=== PATIENT | female | born 1985 | race Caucasian/White ===

== ENCOUNTER 2016-11-12 22:42 | Emergency (ER) | payer BC, OTHER ==
[2016-11-13] MEDS ORDERED: BUPIVACAINE HCL 0.25% /EPINEPHRINE INJ/PF 30 ML SDV INJ ONE (01:35)
[2016-11-13] MEDS ORDERED: AMOXICILLIN TRIHYDRATE 500 MG CAPSULE PO ONE (01:36)
--- NOTE | 2016-11-13 01:37 | ER Document Report ---
ED Oral Problem - General Chief Complaint: Mouth Problem Stated Complaint: PAIN SIDE OF MOUTH INTO EAR LEFT BOTTOM Mode of Arrival: Ambulatory Information source: Patient Notes: Patient is a 31-year-old female who presents to the ER today for dental pain 3 weeks to the left lower jaw. Patient states that she has a broken tooth on that side and that radiates pain to her left ear. She does not have dental insurance issues not seen a dentist. She denies any swelling, drainage, fever, chills she knows of. TRAVEL OUTSIDE OF THE [place] IN LAST 30 DAYS: No - Related Data Allergies/Adverse Reactions: benzocaine [From Anbesol] Allergy (Severe, Verified 11/12/16 23:23) Facial swelling phenol [From Anbesol] Allergy (Severe, Verified 11/12/16 23:23) Facial swelling povidone-iodine [From Anbesol] Allergy (Severe, Verified 11/12/16 23:23) Facial swelling zolpidem tartrate [From Ambien] Allergy (Verified 11/12/16 23:23) Past Medical History - General Information source: Patient - Social History Smoking Status: Current Every Day Smoker Chew tobacco use (# tins/day): No Frequency of alcohol use: Rare Drug Abuse: None Family History: Arthritis, CAD, CVA, DM, Hyperlipidemia, Hypertension, Malignancy Patient has suicidal ideation: No Patient has homicidal ideation: No Pulmonary Medical History: Reports: Hx Bronchitis Denies: Hx Tuberculosis Neurological Medical History: Denies: Hx Migraine, Hx Seizures Endocrine Medical History: Denies: Hx Diabetes Mellitus Type 1, Hx Diabetes Mellitus Type 2 Renal/ Medical History: Reports: Hx Pelvic Inflammatory Disease. Denies: Hx Peritoneal Dialysis GI Medical History: Reports: Hx Gastroesophageal Reflux Disease, Hx Irritable Bowel Psychiatric Medical History: Reports: Hx Bipolar Disorder, Hx Depression, Hx Post Traumatic Stress Disorder Past Surgical History: Reports: Hx Section - x's 3, Hx Cholecystectomy , Hx Tonsillectomy. Denies: Hx Hysterectomy, Hx Pacemaker - Immunizations Immunizations up to date: Yes Hx Diphtheria, Pertussis, Tetanus Vaccination: Yes Hx Pneumococcal Vaccination: 10/24/00 Review of Systems - Review of Systems Constitutional: No symptoms reported EENT: See HPI Cardiovascular: No symptoms reported Respiratory: No symptoms reported Gastrointestinal: No symptoms reported Genitourinary: No symptoms reported Female Genitourinary: No symptoms reported Musculoskeletal: No symptoms reported Skin: No symptoms reported Hematologic/Lymphatic: No symptoms reported Neurological/Psychological: No symptoms reported Physical Exam - Vital signs Vitals: Temp Pulse Resp BP Pulse Ox 98.4 F 82 14 124/70 98 11/12/16 23:29 11/12/16 23:29 11/12/16 23:29 11/12/16 23:29 11/12/16 23:29 - Notes Notes: PHYSICAL EXAMINATION: GENERAL: Well-appearing and in no acute distress. HEAD: Atraumatic, normocephalic. EYES: Pupils equal round and reactive to light, extraocular movements intact, sclera anicteric, conjunctiva are normal. ENT: ear canals without erythema or foreign body, TMs pearly koch with good bony landmarks, nares patent, oropharynx clear without exudates. Moist mucous membranes. Multiple fractured teeth, tender to tooth #18 on the left lower side , no induration, no fluctuance, no edema, no abscess appreciated NECK: Normal range of motion, supple without lymphadenopathy LUNGS: CTAB and equal. No wheezes rales or rhonchi. HEART: Regular rate and rhythm without murmurs EXTREMITIES: Normal range of motion, no pitting edema. No cyanosis. NEUROLOGICAL: Cranial nerves grossly intact. Normal sensory/motor exams. PSYCH: Normal mood, normal affect. SKIN: Warm, Dry, normal turgor, no rashes or lesions noted Course - Re-evaluation Re-evalutation: 11/13/16 02:12 Patient did receive a dental block for the pain which she tolerated well. - Vital Signs Vital signs: Temp Pulse Resp BP Pulse Ox 98.4 F 82 14 124/70 98 11/12/16 23:29 11/12/16 23:29 11/12/16 23:29 11/12/16 23:29 11/12/16 23:29 Procedures - Additional Procedures dental block local Time performed: 02:13 - pt tolerated well Discharge - Discharge Clinical Impression: Pain, dental Condition: Stable Disposition: HOME, SELF-CARE Instructions: Toothache ([facility]) Additional Instructions: Return immediately for any new or worsening symptoms. Follow up with primary care provider, call tomorrow to make followup appointment. Prescriptions: Amoxicillin 500 mg PO TID #30 capsule Ibuprofen [Motrin 800 mg Tablet] 800 mg PO Q8H PRN #30 tab PRN Reason: Forms: Return to Work
[2016-11-13] MEDS ORDERED: BUPIVACAINE HCL 0.25% /EPINEPHRINE INJ/PF 30 ML SDV ONE (02:00)
[2016-11-13] MEDS ORDERED: IBUPROFEN 800 MG TABLET PO ONE (02:15)
[2016-11-13 02:57] VITALS: BP 115/66
== END 2016-11-13 02:56 | disposition home or self-care (01) ==
LOC: ER 22:42
PROC: 3E0T3BZ Introduction of Anesthetic Agent into Peripheral Nerves and Plexi, Percutaneous Approach (ICD-10-PCS; principal; 2016-11-12)
DX: K08.9 Disorder of teeth and supporting structures, unspecified (principal); Z90.49 Acquired absence of other specified parts of digestive tract
CPT/HCPCS: 99282; 64402; J3490

== ENCOUNTER 2017-01-12 20:32 | Emergency (ER) | payer BC ==
--- NOTE | 2017-01-12 21:56 | ER Document Report ---
ED Medical Screen (RME) - General Stated Complaint: TROUBLE SWALLOWING Notes: 31 yo female c/o dental pain and sore throat. left lower tooth is broken, gum is swollen. no fever TRAVEL OUTSIDE OF THE [place] IN LAST 30 DAYS: No - Related Data Allergies/Adverse Reactions: benzocaine [From Anbesol] Allergy (Severe, Verified 11/12/16 23:23) Facial swelling phenol [From Anbesol] Allergy (Severe, Verified 11/12/16 23:23) Facial swelling povidone-iodine [From Anbesol] Allergy (Severe, Verified 11/12/16 23:23) Facial swelling zolpidem tartrate [From Ambien] Allergy (Verified 11/12/16 23:23) Past Medical History Pulmonary Medical History: Reports: Hx Bronchitis Denies: Hx Tuberculosis Neurological Medical History: Denies: Hx Migraine, Hx Seizures Endocrine Medical History: Denies: Hx Diabetes Mellitus Type 1, Hx Diabetes Mellitus Type 2 Renal/ Medical History: Reports: Hx Pelvic Inflammatory Disease. Denies: Hx Peritoneal Dialysis GI Medical History: Reports: Hx Gastroesophageal Reflux Disease, Hx Irritable Bowel Psychiatric Medical History: Reports: Hx Bipolar Disorder, Hx Depression, Hx Post Traumatic Stress Disorder Past Surgical History: Reports: Hx Section - x's 3, Hx Cholecystectomy , Hx Tonsillectomy. Denies: Hx Hysterectomy, Hx Pacemaker - Immunizations Immunizations up to date: Yes Hx Diphtheria, Pertussis, Tetanus Vaccination: Yes Physical Exam - Vital signs Vitals: Temp Pulse Resp BP Pulse Ox 97.9 F 95 16 134/83 H 100 01/12/17 21:29 01/12/17 21:29 01/12/17 21:29 01/12/17 21:29 01/12/17 21:29 Course - Vital Signs Vital signs: Temp Pulse Resp BP Pulse Ox 97.9 F 95 16 134/83 H 100 01/12/17 21:29 01/12/17 21:29 01/12/17 21:29 01/12/17 21:29 01/12/17 21:29
[2017-01-13] MEDS ORDERED: PENICILLIN V POTASSIUM 500 MG TABLET PO ONE (02:05)
[2017-01-13] MEDS ORDERED: IBUPROFEN 800 MG TABLET PO ONE (02:05)
--- NOTE | 2017-01-13 02:08 | ER Document Report ---
ED Oral Problem - General Mode of Arrival: Ambulatory Information source: Patient TRAVEL OUTSIDE OF THE [place] IN LAST 30 DAYS: No - HPI Patient complains to provider of: Toothache Associated symptoms: Other - See above <GRANT DA SILVA - Last Filed: 01/13/17 02:08> <ERROL GUO - Last Filed: 01/13/17 03:14> - General Chief Complaint: Toothache Stated Complaint: TROUBLE SWALLOWING Notes: Patient is a 31 year old female who presents to the emergency department complaining of a toothache. Patient reports the pain started 4 days ago and then she started having left sided jaw pain yesterday, patient also complains that it hurts to swallow. Patient reports that she does not have dental insurance and has not had any recent dental care. Patient has been taking ibuprofen at home for pain. (GRANT DA SILVA) - Related Data Allergies/Adverse Reactions: benzocaine [From Anbesol] Allergy (Severe, Verified 11/12/16 23:23) Facial swelling phenol [From Anbesol] Allergy (Severe, Verified 11/12/16 23:23) Facial swelling povidone-iodine [From Anbesol] Allergy (Severe, Verified 11/12/16 23:23) Facial swelling zolpidem tartrate [From Ambien] Allergy (Verified 11/12/16 23:23) Past Medical History - General Information source: Patient - Social History Smoking Status: Current Every Day Smoker Family History: Reviewed & Not Pertinent, Arthritis, CAD, CVA, DM, Hyperlipidemia, Hypertension, Malignancy Pulmonary Medical History: Reports: Hx Bronchitis Renal/ Medical History: Reports: Hx Pelvic Inflammatory Disease GI Medical History: Reports: Hx Gastroesophageal Reflux Disease, Hx Irritable Bowel Psychiatric Medical History: Reports: Hx Bipolar Disorder, Hx Depression, Hx Post Traumatic Stress Disorder Past Surgical History: Reports: Hx Section - x's 3, Hx Cholecystectomy , Hx Tonsillectomy - Immunizations Immunizations up to date: Yes Hx Diphtheria, Pertussis, Tetanus Vaccination: Yes Hx Pneumococcal Vaccination: 10/24/00 <GRANT DA SILVA - Last Filed: 01/13/17 02:08> Review of Systems - Review of Systems Constitutional: No symptoms reported EENT: See HPI, Difficulty swallowing - pain, Dental problem, Other - jaw pain Cardiovascular: No symptoms reported Respiratory: No symptoms reported Gastrointestinal: No symptoms reported Genitourinary: No symptoms reported Female Genitourinary: No symptoms reported Musculoskeletal: No symptoms reported Skin: No symptoms reported Hematologic/Lymphatic: No symptoms reported Neurological/Psychological: No symptoms reported -: Yes All other systems reviewed and negative <GRANT DA SILVA - Last Filed: 01/13/17 02:08> Physical Exam - Vital signs Interpretation: Normal - General General appearance: Appears well, Alert - HEENT Head: Normocephalic, Atraumatic Eyes: Normal Pupils: PERRL Mouth/Lips: Normal Mucous membranes: Normal Teeth diagram: 1 - TTP, decay Pharynx: Normal - Respiratory Respiratory status: No respiratory distress Chest status: Nontender Breath sounds: Normal Chest palpation: Normal - Cardiovascular Rhythm: Regular Heart sounds: Normal auscultation Murmur: No - Abdominal Inspection: Normal Distension: No distension Bowel sounds: Normal Tenderness: Nontender Organomegaly: No organomegaly - Back Back: Normal, Nontender - Extremities General upper extremity: Normal inspection, Nontender, Normal color, Normal ROM , Normal temperature General lower extremity: Normal inspection, Nontender, Normal color, Normal ROM , Normal temperature, Normal weight bearing. No: [place]'s sign - Neurological Neuro grossly intact: Yes Cognition: Normal Orientation: AAOx4 [place] Coma Scale Eye Opening: Spontaneous [place] Coma Scale Verbal: Oriented [place] Coma Scale Motor: Obeys Commands Alvaro Coma Scale Total: 15 Speech: Normal Motor strength normal: LUE, RUE, LLE, RLE Sensory: Normal - Psychological Associated symptoms: Normal affect, Normal mood - Skin Skin Temperature: Warm Skin Moisture: Dry Skin Color: Normal <ERROL GUO - Last Filed: 01/13/17 03:14> - Vital signs Vitals: Temp Pulse Resp BP Pulse Ox 97.9 F 95 16 134/83 H 100 01/12/17 21:29 01/12/17 21:29 01/12/17 21:29 01/12/17 21:29 01/12/17 21:29 Course <GRANT DA SILVA - Last Filed: 01/13/17 02:08> <ERROL GUO - Last Filed: 01/13/17 03:14> - Re-evaluation Re-evalutation: 01/13/17 Patient with poor dentition. Will be started on penicillin. Patient is to follow-up with dentist when she is able. Will be discharged home with ibuprofen and penicillin. Agrees with plan. Stable for discharge. (ERROL GUO) - Vital Signs Vital signs: Temp Pulse Resp BP Pulse Ox 98.9 F 84 18 124/72 100 01/13/17 02:23 01/13/17 02:23 01/13/17 02:23 01/13/17 02:23 01/13/17 02:23 Discharge <GRANT DA SILVA - Last Filed: 01/13/17 02:08> <ERROL GUO - Last Filed: 01/13/17 03:14> - Discharge Clinical Impression: Pain, dental Condition: Stable Disposition: HOME, SELF-CARE Instructions: Penicillin V K ([facility]), Toothache ([facility]) Prescriptions: Ibuprofen 800 mg PO TIDP PRN #30 tablet PRN Reason: Penicillin V Potassium [Penicillin Vk 500 mg Tablet] 500 mg PO QID #40 tablet Scribe Attestation: 01/13/17 03:14 I personally performed the services described in the documentation, reviewed and edited the documentation which was dictated to the scribe in my presence, and it accurately records my words and actions. (ERROL GUO) Scribe Documentation - Scribe Written by Janey:: janey Lawrence, 01/13/17, 0208 acting as scribe for :: Ekaterina <GRANT DA SILVA - Last Filed: 01/13/17 02:08>
[2017-01-13 02:25] VITALS: BP 124/72
== END 2017-01-13 02:26 | disposition home or self-care (01) ==
LOC: ER 20:32
DX: K02.9 Dental caries, unspecified (principal); K08.89 Other specified disorders of teeth and supporting structures; R68.84 Jaw pain; F17.200 Nicotine dependence, unspecified, uncomplicated; Z88.4 Allergy status to anesthetic agent; Z88.8 Allergy status to other drugs, medicaments and biological substances
CPT/HCPCS: 99282

== ENCOUNTER 2017-09-08 01:13 | Emergency (ER) | payer BC ==
[2017-09-08 01:18] VITALS: BP 133/63
[2017-09-08] MEDS ORDERED: DIAZEPAM INJ 10 MG/2 ML DISP.SYRIN IM ONE (02:32)
--- NOTE | 2017-09-08 02:42 | ER Document Report ---
HPI - HPI Patient complains to provider of: back pain, muscle strain Pain Level: 3 Context: Patient is a 32-year-old female comes emergency department for chief complaint of pain in her mid upper back on the left side. She states that she was trying to lift a large laundry basket, she felt discomfort in the area, she states that since that time discomfort has been worsening. She denies shortness of breath, chest pain, abdominal pain, numbness, direct impact trauma. She denies any daily medications. LMP within the past month. She is here with her mother. - REPRODUCTIVE Reproductive: DENIES: : Past Medical History - General Information source: Patient - Social History Smoking Status: Current Every Day Smoker Frequency of alcohol use: None Drug Abuse: None Lives with: Family Family History: Reviewed & Not Pertinent, Arthritis, CAD, CVA, DM, Hyperlipidemia, Hypertension, Malignancy Patient has suicidal ideation: No Patient has homicidal ideation: No Pulmonary Medical History: Reports: Hx Bronchitis Denies: Hx Tuberculosis Neurological Medical History: Denies: Hx Migraine, Hx Seizures Endocrine Medical History: Denies: Hx Diabetes Mellitus Type 1, Hx Diabetes Mellitus Type 2 Renal/ Medical History: Reports: Hx Pelvic Inflammatory Disease. Denies: Hx Peritoneal Dialysis GI Medical History: Reports: Hx Gastroesophageal Reflux Disease, Hx Irritable Bowel Psychiatric Medical History: Reports: Hx Bipolar Disorder, Hx Depression, Hx Post Traumatic Stress Disorder Past Surgical History: Reports: Hx Section - x's 3, Hx Cholecystectomy , Hx Tonsillectomy. Denies: Hx Hysterectomy, Hx Pacemaker - Immunizations Immunizations up to date: Yes Hx Diphtheria, Pertussis, Tetanus Vaccination: Yes Hx Pneumococcal Vaccination: 10/24/00 Vertical Provider Document - INFECTION CONTROL TRAVEL OUTSIDE OF THE [place] IN LAST 30 DAYS: No - HEENT HEENT: Atraumatic, Normocephalic - RESPIRATORY Respiratory: Breath Sounds Normal, No Respiratory Distress O2 Sat by Pulse Oximetry: 99 - CARDIOVASCULAR Cardiovascular: Regular Rate, Regular Rhythm - GI/ABDOMEN Gastrointestinal: Abdomen Soft, Abdomen Non-Tender - BACK Back: negative: Normal Inspection - Tender specifically in the left upper back along the side of the spine extending towards underneath the left clavicle. Very reproduceable. Worse with movement. No midline tenderness, lower back pain , saddle anesthesia. Full ROM of all extremity, normal strength, normal distal N /V exam. - MUSCULOSKELETAL/EXTREMETIES Musculoskeletal/Extremeties: MAEW, FROM, Non-Tender - DERM Integumentary: Warm, Dry, No Rash Course - Re-evaluation Re-evalutation: Very point specific tenderness with a known mechanism of injury. No concerning abnormalities, no neurological deficits, no evidence of severe trauma or emergent injury. Patient given a dose of diazepam here, placed a muscle relaxer , give recommendations for treatment of suspected muscle strain and spasm, discussed follow-up and return precautions, patient states understanding and agreement. - Vital Signs Vital signs: Temp Pulse Resp BP Pulse Ox 99.1 F 91 18 133/63 H 99 09/08/17 01:16 09/08/17 01:16 09/08/17 01:16 09/08/17 01:16 09/08/17 01:16 Discharge - Discharge Clinical Impression: Muscle strain Back pain Qualifiers: Back pain location: back pain in other location Chronicity: acute Qualified Code(s): M54.9 - Dorsalgia, unspecified Condition: Stable Disposition: HOME, SELF-CARE Additional Instructions: Your examination is consistent with muscular strain and spasm. Rest, avoid lifting/twisting, apply heat to the area, take the muscle relaxer as prescribed. Follow-up with primary care. Return to the emergency department for any concerning or worsening symptoms including vomiting, fever, difficulty breathing, or any other concerning symptoms. Prescriptions: Methocarbamol [Robaxin 750 mg Tablet] 750 mg PO Q6 #20 tablet Forms: Return to Work
== END 2017-09-08 02:51 | disposition home or self-care (01) ==
LOC: ER 01:13
DX: T14.8XXA Other injury of unspecified body region, initial encounter (principal); M54.89 Other dorsalgia; X58.XXXA Exposure to other specified factors, initial encounter; F17.200 Nicotine dependence, unspecified, uncomplicated
CPT/HCPCS: 99283; 96372; J3360

== ENCOUNTER 2018-06-07 08:08 | Emergency (ER) | payer BC ==
--- NOTE | 2018-06-07 09:25 | ER Document Report ---
ED General - General Chief Complaint: Abscess Stated Complaint: VAGINAL DISCOMFORT Time Seen by Provider: 06/07/18 09:24 Mode of Arrival: Ambulatory Information source: Patient TRAVEL OUTSIDE OF THE [place] IN LAST 30 DAYS: No - HPI Notes: 33-year-old female presents to the emergency room for evaluation of the right groin x 2 days ago. Has not tried any [id number] medication for pain control, has not been any heat or ice to area. States she is thereafter she started with a small bump. pain is 4/10, throbbing pain. history of abscesses. Denies any vaginal or pelvic pain. Denies vaginal discharge denies fevers, chills, chest pain,palpitations, shortness of breath, dyspnea, nausea, vomiting, diarrhea, abdominal pain, hematuria,blurred vision, double vision, loss of vision, speech changes, LH, dizziness, syncope, headaches, wheezing, ST , URI, neck pain, weakness, bowel or bladder dysfunction, saddle anesthesia, numbness or tingling in bilateral upper or lower extremities equally, muscle paralysis, weakness in bilateral upper or lower extremities equally or rash. Denies IV drug use. - Related Data Allergies/Adverse Reactions: benzocaine [From Anbesol] Allergy (Severe, Verified 09/08/17 01:16) Facial swelling phenol [From Anbesol] Allergy (Severe, Verified 09/08/17 01:16) Facial swelling povidone-iodine [From Anbesol] Allergy (Severe, Verified 09/08/17 01:16) Facial swelling zolpidem tartrate [From Ambien] Allergy (Verified 09/08/17 01:16) Past Medical History - General Information source: Patient - Social History Smoking Status: Never Smoker Frequency of alcohol use: None Drug Abuse: None Family History: Reviewed & Not Pertinent, Arthritis, CAD, CVA, DM, Hyperlipidemia, Hypertension, Malignancy Patient has suicidal ideation: No Patient has homicidal ideation: No Pulmonary Medical History: Reports: Hx Bronchitis Denies: Hx Tuberculosis Neurological Medical History: Denies: Hx Migraine, Hx Seizures Endocrine Medical History: Denies: Hx Diabetes Mellitus Type 1, Hx Diabetes Mellitus Type 2 Renal/ Medical History: Reports: Hx Pelvic Inflammatory Disease. Denies: Hx Peritoneal Dialysis GI Medical History: Reports: Hx Gastroesophageal Reflux Disease, Hx Irritable Bowel Psychiatric Medical History: Reports: Hx Bipolar Disorder, Hx Depression, Hx Post Traumatic Stress Disorder Past Surgical History: Reports: Hx Section - x's 3, Hx Cholecystectomy , Hx Tonsillectomy. Denies: Hx Hysterectomy, Hx Pacemaker - Immunizations Immunizations up to date: Yes Hx Diphtheria, Pertussis, Tetanus Vaccination: Yes Hx Pneumococcal Vaccination: 10/24/00 Review of Systems - Review of Systems Constitutional: No symptoms reported EENT: No symptoms reported Cardiovascular: No symptoms reported Respiratory: No symptoms reported Gastrointestinal: No symptoms reported Genitourinary: No symptoms reported Female Genitourinary: No symptoms reported Musculoskeletal: No symptoms reported Skin: See HPI Hematologic/Lymphatic: No symptoms reported Neurological/Psychological: No symptoms reported Physical Exam - Vital signs Vitals: Temp Pulse Resp BP Pulse Ox 99.0 F 94 14 132/72 H 97 06/07/18 08:12 06/07/18 08:12 06/07/18 08:12 06/07/18 08:12 06/07/18 08:12 - Notes Notes: PHYSICAL EXAMINATION: GENERAL: Well-appearing, well-nourished and in no acute distress. HEAD: Atraumatic, normocephalic. ENT: Nares patent, oropharynx clear without exudates. Moist mucous membranes. NECK: Normal range of motion, supple without lymphadenopathy LUNGS: Breath sounds clear to auscultation bilaterally and equal. No wheezes rales or rhonchi. HEART: Regular rate and rhythm without murmurs ABDOMEN: Soft, nontender, nondistended abdomen. No guarding, no rebound. No masses appreciated. 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 noted mass distal to right suprapubic area approx [id number] with erythema and induration. no surrounding lymphadenopathy. no open wounds or drainage. Musculoskeletal: Normal range of motion, no pitting or edema. No cyanosis. NEUROLOGICAL: Cranial nerves grossly intact. Normal speech, normal gait. Normal sensory, motor exams PSYCH: Normal mood, normal affect. SKIN: Warm, Dry, normal turgor, no rashes or lesions noted. Course - Re-evaluation Re-evalutation: 06/07/18 10:32 33-year-old female afebrile distress for evaluation of a right groin mass just distal to suprapubic area that she noticed proximally 1-2 days ago. Has not tried any [id number] medications for pain control has not tried any heat or ice for pain control. Patient denies any other area of abscesses. Patient has not been in any oral antibiotics. Patient states she was shaving and noticed from after shaving progressively bigger. Patient given 1 g of Rocephin IM. Patient does not meet sepsis criteria is overall very well in appearance. Exam and history are not consistent with DVT. Patient will be started on coverage for both staph and strep. At this time will discharge with return precautions and follow-up recommendations. Verbal discharge instructions given a the bedside and opportunity for questions given. Has not had drink, drive or operate heavy machinery while taking improvement of cognition and judgment. Only take a severe pain medication warnings reviewed. After performing a Medical Screening Examination, I estimate there is LOW risk for OPEN FRACTURE, COMPARTMENT SYNDROME, TENDON RUPTURE, ACUTE NEUROVASCULAR INJURY, or RETAINED FOREIGN BODY, thus I consider the discharge disposition reasonable. Also, there is no evidence or peritonitis, sepsis, or toxicity. I have reevaluated this patient multiple times and no significant life threatening changes are noted. The patient and I have discussed the diagnosis and risks, and we agree with discharging home with close follow-up with the understanding that symptoms and presentations can change. We also discussed returning to the Emergency Department immediately if new or worsening symptoms occur. We have discussed the symptoms which are most concerning (e.g., changing or worsening pain, fever , numbness, weakness, cool or painful digits) that necessitate immediate return. - Vital Signs Vital signs: Temp Pulse Resp BP Pulse Ox 99.0 F 94 14 132/72 H 97 06/07/18 08:12 06/07/18 08:12 06/07/18 08:12 06/07/18 08:12 06/07/18 08:12 Discharge - Discharge Clinical Impression: Cellulitis of groin, right Condition: Stable Disposition: HOME, SELF-CARE Instructions: Trimethoprim-Sulfa ([facility]), Cephalexin ([facility]), Oral Narcotic Medication ([facility]) Additional Instructions: You were given 1 g Rocephin in the emergency room. the rash is likely due to infection of your skin. You need to take the antibiotics as prescribed. Do not stop even if the rash goes away until you have completed all the antibiotics. You need to return to emergency department if the redness spreads outside of this area by more than 2 cm in any direction. You should also return if you develop fevers with temperature greater than 101, persistent vomiting, worsening pain, or have any other symptoms that are concerning to you. Antibiotics with food, eat yogurt daily to prevent loose stool. Warm compress 20 minutes off several times a day. Come sooner or return to the ED do not drive, drink or operate heavy machinery this can cause impairment of judgment and sedation. Return immediately for any new or worsening symptoms. Follow up with primary care provider, call tomorrow to make followup appointment. Prescriptions: Cephalexin Monohydrate [Keflex 500 mg Capsule] 500 mg PO BID #20 capsule Sulfamethoxazole/Trimethoprim [Bactrim Ds Tablet] 1 each PO BID #20 tablet Forms: Return to Work Referrals: MOISES QUIROZ MD [COMMUNITY BASED STAFF] - Follow up in 3-5 days
[2018-06-07] MEDS ORDERED: LIDOCAINE 1% INJ-PF (10 MG/ML) 30 ML SDV INJ ONE (10:24)
[2018-06-07] MEDS ORDERED: HYDROCODONE/ACETAMINOPHEN 5-325 MG (6 TAB/ER DISP) PO PRN (10:24)
[2018-06-07] MEDS ORDERED: CEFTRIAXONE INJ 1000 MG VIAL IM ONE (10:24)
[2018-06-07 10:56] VITALS: BP 110/67
[2018-06-07 12:40] LABS: APPEARANCE,URINE CLEAR; BILIRUBIN,URINE NEGATIVE (NEGATIVE); COLOR,URINE YELLOW; GLUCOSE, URINE NEGATIVE (NEGATIVE); KETONES,URINE NEGATIVE (NEGATIVE); LEUKOCYTE ESTERASE,URINE NEGATIVE (NEGATIVE); NITRITE,URINE NEGATIVE (NEGATIVE); PROTEIN,URINE NEGATIVE (NEGATIVE); URINE SPECIFIC GRAVITY 1.015
== END 2018-06-07 10:57 | disposition home or self-care (01) ==
LOC: ER 08:08
DX: L02.214 Cutaneous abscess of groin (principal); L03.314 Cellulitis of groin; M62.81 Muscle weakness (generalized)
CPT/HCPCS: 99283; 96372; 81001; J3490; J0696

== ENCOUNTER 2018-09-24 11:56 | Emergency (ER) | payer BC ==
[2018-09-24 12:19] VITALS: BP 122/76
[2018-09-24] MEDS ORDERED: IBUPROFEN 800 MG TABLET PO ONE (12:52)
[2018-09-24] MEDS ORDERED: PSEUDOEPHEDRINE HCL 30 MG TABLET PO ONE (12:52)
[2018-09-24] MEDS ORDERED: GUAIFENESIN 600 MG TABLET.SA PO ONE (12:52)
[2018-09-24] MEDS ORDERED: LORATADINE 10 MG TABLET PO ONE (12:52)
--- NOTE | 2018-09-24 12:56 | ER Document Report ---
ED Respiratory Problem - General Chief Complaint: Cough Stated Complaint: COUGH,CONGESTION Time Seen by Provider: 09/24/18 12:44 Mode of Arrival: Ambulatory Information source: Patient Notes: 33-year-old female presented to ED for complaint of cough times a week. She states she been having a sore throat and this started with the cough. She states she has been taken [id number] medicine and with no relief. She states that her sleep symptoms seem to be getting worse. She states that the cough is starting to make it is so she has some discomfort in her chest from the cough. She is alert and oriented respirations regular and unlabored speaking in full sentences. Her lungs are clear to auscultation. TRAVEL OUTSIDE OF THE [place] IN LAST 30 DAYS: No - HPI Patient complains to provider of: Cough Onset: Last week Duration: Continuous Initiating Event: URI Quality of pain: Achy Severity: Moderate Pain Level: 3 Context: Smoker Cough: Nonproductive Sputum amount: None Associated symptoms: Congestion, Cough, PND, Runny nose, Sinus pain/pressure, Sore Throat Similar symptoms previously: Yes Recently seen / treated by doctor: No - Related Data Allergies/Adverse Reactions: benzocaine [From Anbesol] Allergy (Severe, Verified 09/08/17 01:16) Facial swelling phenol [From Anbesol] Allergy (Severe, Verified 09/08/17 01:16) Facial swelling povidone-iodine [From Anbesol] Allergy (Severe, Verified 09/08/17 01:16) Facial swelling zolpidem tartrate [From Ambien] Allergy (Verified 09/08/17 01:16) Past Medical History - General Information source: Patient - Social History Smoking Status: Current Every Day Smoker Cigarette use (# per day): Yes - Half pack a day Chew tobacco use (# tins/day): No Smoking Education Provided: Yes - 4 minutes Frequency of alcohol use: Rare Drug Abuse: None Occupation: [employer] Lives with: Spouse/Significant other Family History: Reviewed & Not Pertinent, Arthritis, CAD, CVA, DM, Hyperlipidemia, Hypertension, Malignancy Patient has suicidal ideation: No Patient has homicidal ideation: No - Past Medical History Cardiac Medical History: Reports: None Pulmonary Medical History: Reports: Hx Bronchitis EENT Medical History: Reports: None Neurological Medical History: Reports: None Endocrine Medical History: Reports: None Renal/ Medical History: Reports: Hx Ovarian Cysts, Hx Pelvic Inflammatory Disease Malignancy Medical History: Reports: None GI Medical History: Reports: None, Hx Gastroesophageal Reflux Disease, Hx Irritable Bowel Musculoskeletal Medical History: Reports None Skin Medical History: Reports None Psychiatric Medical History: Reports: Hx Bipolar Disorder, Hx Depression, Hx Post Traumatic Stress Disorder Traumatic Medical History: Reports: None Infectious Medical History: Reports: None Past Surgical History: Reports: Hx Section - x's 3, Hx Cholecystectomy , Hx Tonsillectomy - Immunizations Immunizations up to date: No Hx Diphtheria, Pertussis, Tetanus Vaccination: No - 2004 Hx Pneumococcal Vaccination: 10/24/00 Review of Systems - Review of Systems Constitutional: Recent illness EENT: Nose congestion, Nose discharge, Sinus pressure, Sinus discharge, Throat pain Cardiovascular: No symptoms reported Respiratory: Cough. denies: Hurts to breathe, Hemoptysis, Short of breath, Sputum, Stridor, Wheezing Gastrointestinal: No symptoms reported Genitourinary: No symptoms reported Female Genitourinary: No symptoms reported Musculoskeletal: No symptoms reported Skin: No symptoms reported Hematologic/Lymphatic: No symptoms reported Neurological/Psychological: No symptoms reported -: Yes All other systems reviewed and negative Physical Exam - Vital signs Vitals: Temp Pulse Resp BP Pulse Ox 98.2 F 81 16 122/76 97 09/24/18 12:17 09/24/18 12:17 09/24/18 12:17 09/24/18 12:17 09/24/18 12:17 Interpretation: Normal - General General appearance: Appears well, Alert - HEENT Head: Normocephalic, Atraumatic Eyes: Normal Pupils: PERRL Ears: Normal External canal: Normal Tympanic membrane: Normal Nasal: Purulent discharge, Swelling Mouth/Lips: Normal Mucous membranes: Normal Pharynx: Post nasal drainage Neck: Normal - Respiratory Respiratory status: No respiratory distress Chest status: Nontender Breath sounds: Nonproductive cough Chest palpation: Normal - Cardiovascular Rhythm: Regular Heart sounds: Normal auscultation Murmur: No - Abdominal Inspection: Normal Distension: No distension Bowel sounds: Normal Tenderness: Nontender Organomegaly: No organomegaly - Back Back: Normal, Nontender - Extremities General upper extremity: Normal inspection, Nontender, Normal color, Normal ROM , Normal temperature General lower extremity: Normal inspection, Nontender, Normal color, Normal ROM , Normal temperature, Normal weight bearing. No: [place]'s sign - Neurological Neuro grossly intact: Yes Cognition: Normal Orientation: AAOx4 [place] Coma Scale Eye Opening: Spontaneous [place] Coma Scale Verbal: Oriented [place] Coma Scale Motor: Obeys Commands [place] Coma Scale Total: 15 Speech: Normal Motor strength normal: LUE, RUE, LLE, RLE Sensory: Normal - Psychological Associated symptoms: Normal affect, Normal mood - Skin Skin Temperature: Warm Skin Moisture: Dry Skin Color: Normal Course - Re-evaluation Re-evalutation: 09/24/18 13:08 After performing a Medical Screening Examination, I estimate there is LOW risk for ACUTE CORONARY SYNDROME, RESPIRATORY FAILURE, SEPSIS OR MENINGITIS, thus I consider the discharge disposition reasonable. I have reevaluated this patient multiple times and no significant life threatening changes are noted. The patient and I have discussed the diagnosis and risks, and we agree with discharging home with close follow-up. We also discussed returning to the Emergency Department immediately if new or worsening symptoms occur. We have discussed the symptoms which are most concerning (e.g., changing or worsening pain, trouble swallowing or breathing, neck stiffness, fever) that necessitate immediate return. - Vital Signs Vital signs: Temp Pulse Resp BP Pulse Ox 98.2 F 81 16 122/76 97 09/24/18 12:17 09/24/18 12:17 09/24/18 12:17 09/24/18 12:17 09/24/18 12:17 Discharge - Discharge Clinical Impression: URI (upper respiratory infection) Qualifiers: URI type: unspecified URI Qualified Code(s): J06.9 - Acute upper respiratory infection, unspecified Condition: Stable Disposition: HOME, SELF-CARE Instructions: Family Physicians / Practices Additional Instructions: UPPER RESPIRATORY ILLNESS: You have a viral infection of the respiratory passages -- a "cold." This common infection causes nasal congestion, drainage, and often sore throat and cough. It is highly contagious. The disease usually lasts about 10 to 14 days. There is no "cure" for the viral infection -- it must run its course. If there is a complication, such as bacterial infection in the nose, sinuses, middle ear, or bronchial tubes, antibiotics may be required. The antibiotics won't affect the virus. Drink plenty of fluids. A humidifier may help. An expectorant medication or decongestant may make you more comfortable. Use acetaminophen or ibuprofen for fever or aches. See the doctor if fever persists over two days, if there is any significant worsening of your symptoms, or if you simply fail to improve as expected. DECONGESTANT MEDICATION: A decongestant medicine has been suggested. Often this medicine is combined in the same tablet with an antihistamine or expectorant. This type of medicine is helpful in treating a bad cold or sinus condition, as well as in treatment of the nasal congestion of hay fever. It is not of much benefit for lung infections. Decongestant medicines are related to stimulants. They can cause an increase in blood pressure and heart rate. Persons with heart disease and high blood pressure should not take decongestants without discussing this with the physician. If you develop palpitations, chest pain, headache, or tremors, stop the medicine and consult your physician. COUGH-SUPPRESSANT & EXPECTORANT MEDICATION: You are to use a cough medication as needed for relief of symptoms. This medicine is a combination of an expectorant (to make the mucous thinner and more easily "coughed up") and a cough suppressant (to reduce the frequency of coughing). The cough-suppressant medicine is related to narcotics. You may experience mild nausea and sleepiness. Some patients who are very sensitive to narcotics may have stomach pain from this medicine. Taking the medicine with food reduces these side effects. Do not drive or work with machinery until you know how this medicine affects you. The expectorant should have no side effects. Iodine-containing expectorants (such as organidin) should not be taken by persons with active thyroid disease unless approved by your doctor. Call the doctor if you develop shortness of breath, hives, rash, itching, lightheadedness, or severe nausea and vomiting. You have been treated with Claritin 10 mg, Sudafed 30 mg, Mucinex 600 mg, and ibuprofen 800 mg your cough cold congestion. You can also use Flonase which is [id number] use according to the box instructions. Salt and soda gargles to remove the postnasal drip from the back your throat will also help you with the cough. Chloraseptic spray will help with the sore throat. Salt and soda solution 1 quart of water 1 tablespoon of salt 1 teaspoon of baking soda Mixed 3 ingredients together and boil for 1 minute Placed in a covered quart jar Use 1/2 ounce of cold solution to gargle 3 times a day USE OF ACETAMINOPHEN (Tylenol): Acetaminophen may be taken for pain relief or fever control. It's much safer than aspirin, offering a wider range of "safe" dosages. It is safe during . Some brand names are Tylenol, Panadol, Datril, Anacin 3, Tempra, and Liquiprin. Acetaminophen can be repeated every four hours. The following are maximum recommended dosages: >89 pounds or adults 650 mg to 900 mg Acetaminophen can be repeated every four hours. Maximum dose not to exceed 4000 mg a day. SMOKING: If you smoke, you should stop smoking. The tar and chemicals in cigarette smoke are harmful. Smoking has been shown to cause: emphysema chronic bronchitis lung cancer mouth and throat cancer stomach and pancreas cancer premature aging defects In addition, smoking increases ear and lung infections in children of smokers. FOLLOW-UP CARE: If you have been referred to a physician for follow-up care, call the physician s office for an appointment as you were instructed or within the next two days. If you experience worsening or a significant change in your symptoms, notify the physician immediately or return to the Emergency Department at any time for re-evaluation. Forms: Smoking Cessation Education, Return to Work
== END 2018-09-24 13:04 | disposition home or self-care (01) ==
LOC: ER 11:56
DX: J06.9 Acute upper respiratory infection, unspecified (principal); R68.89 Other general symptoms and signs; F17.210 Nicotine dependence, cigarettes, uncomplicated; Z90.49 Acquired absence of other specified parts of digestive tract
CPT/HCPCS: 99283; 99406

== ENCOUNTER 2018-12-17 19:22 | Emergency (ER) | payer BC ==
--- NOTE | 2018-12-17 20:37 | ER Document Report ---
ED ENT - General Chief Complaint: Sore Throat Stated Complaint: SORE THROAT Time Seen by Provider: 12/17/18 20:27 Mode of Arrival: Ambulatory Information source: Patient Notes: 33-year-old female presents to ED for complaint of runny nose cough congestion and sore throat for 2 days. She states she has not had a fever that she knows of but she has had some hot and cold flashes. Patient is alert oriented respirations regular and unlabored speaking in full sentences. TRAVEL OUTSIDE OF THE [place] IN LAST 30 DAYS: No - HPI Patient complains to provider of: Nose problem, Throat problem Onset: Other - 2 days Onset/Duration: Intermittent Quality of pain: Sharp Severity: Moderate Pain Level: 3 Context: Recent Illness Location of pain: Nose, Sinus, Throat Associated symptoms: Chills, Congestion, Cough, Runny nose, Sinus pain, Sinus drainage, Sore throat Similar symptoms previously: Yes Recently seen / treated by doctor: No - Related Data Allergies/Adverse Reactions: benzocaine [From Anbesol] Allergy (Severe, Verified 09/08/17 01:16) Facial swelling phenol [From Anbesol] Allergy (Severe, Verified 09/08/17 01:16) Facial swelling povidone-iodine [From Anbesol] Allergy (Severe, Verified 09/08/17 01:16) Facial swelling zolpidem tartrate [From Ambien] Allergy (Verified 09/08/17 01:16) Past Medical History - General Information source: Patient - Social History Smoking Status: Current Every Day Smoker Cigarette use (# per day): Yes - Half pack a day Chew tobacco use (# tins/day): No Smoking Education Provided: Yes - 4 minutes Frequency of alcohol use: Rare Drug Abuse: None Occupation: [employer] Lives with: Spouse/Significant other Family History: Reviewed & Not Pertinent, Arthritis, CAD, CVA, DM, Hyperlipi demia, Hypertension, Malignancy Patient has suicidal ideation: No Patient has homicidal ideation: No - Past Medical History Cardiac Medical History: Reports: None Pulmonary Medical History: Reports: Hx Bronchitis EENT Medical History: Reports: None Neurological Medical History: Reports: None Renal/ Medical History: Reports: Hx Ovarian Cysts, Hx Pelvic Inflammatory Disease Malignancy Medical History: Reports: None GI Medical History: Reports: Hx Gastroesophageal Reflux Disease, Hx Irritable Bowel Musculoskeletal Medical History: Reports None Skin Medical History: Reports None Psychiatric Medical History: Reports: Hx Bipolar Disorder, Hx Depression, Hx Post Traumatic Stress Disorder Traumatic Medical History: Reports: None Infectious Medical History: Reports: None Past Surgical History: Reports: Hx Section - x's 3, Hx Cholecystectomy, Hx Tonsillectomy - Immunizations Immunizations up to date: No Hx Diphtheria, Pertussis, Tetanus Vaccination: No - 2004 Hx Pneumococcal Vaccination: 10/24/00 Review of Systems - Review of Systems Constitutional: Chills, Recent illness EENT: Nose congestion, Nose discharge, Sinus pressure, Sinus discharge, Throat pain Cardiovascular: No symptoms reported Respiratory: Cough Gastrointestinal: No symptoms reported Genitourinary: No symptoms reported Female Genitourinary: No symptoms reported Musculoskeletal: No symptoms reported Skin: No symptoms reported Hematologic/Lymphatic: No symptoms reported Neurological/Psychological: No symptoms reported -: Yes All other systems reviewed and negative Physical Exam - Vital signs Vitals: Temp Pulse Resp BP Pulse Ox 98.1 F 89 18 127/73 H 96 12/17/18 19:26 12/17/18 19:26 12/17/18 19:26 12/17/18 19:26 12/17/18 19:26 Interpretation: Normal - General General appearance: Appears well, Alert - HEENT Head: Normocephalic, Atraumatic Eyes: Normal Pupils: PERRL Ears: Normal External canal: Normal Tympanic membrane: Normal Sinus: Normal Nasal: Purulent discharge, Swelling Mouth/Lips: Normal Mucous membranes: Normal Pharynx: Post nasal drainage. No: Erythema Neck: Normal - Respiratory Respiratory status: No respiratory distress Chest status: Nontender Breath sounds: Nonproductive cough Chest palpation: Normal - Cardiovascular Rhythm: Regular Heart sounds: Normal auscultation Murmur: No - Abdominal Inspection: Normal Distension: No distension Bowel sounds: Normal Tenderness: Nontender Organomegaly: No organomegaly - Back Back: Normal, Nontender - Extremities General upper extremity: Normal inspection, Nontender, Normal color, Normal ROM, Normal temperature General lower extremity: Normal inspection, Nontender, Normal color, Normal ROM, Normal temperature, Normal weight bearing. No: [place]'s sign - Neurological Neuro grossly intact: Yes Cognition: Normal Orientation: AAOx4 [place] Coma Scale Eye Opening: Spontaneous [place]var[place] Coma Scale Verbal: Oriented [place]var[place] Coma Scale Motor: Obeys Commands [place] Coma Scale Total: 15 Speech: Normal Motor strength normal: LUE, RUE, LLE, RLE Sensory: Normal - Psychological Associated symptoms: Normal affect, Normal mood - Skin Skin Temperature: Warm Skin Moisture: Dry Skin Color: Normal Course - Re-evaluation Re-evalutation: 12/17/18 21:34 Patient treated with Claritin 10 mg Sudafed 30 mg, Mucinex 600 mg, and ibuprofen 800 mg for her cough cold congestion. After performing a Medical Screening Examination, I estimate there is LOW risk for ACUTE CORONARY SYNDROME, RESPIRATORY FAILURE, SEPSIS OR MENINGITIS, thus I consider the discharge disposition reasonable. I have reevaluated this patient multiple times and no significant life threatening changes are noted. The patient and I have discussed the diagnosis and risks, and we agree with discharging home with close follow- up. We also discussed returning to the Emergency Department immediately if new or worsening symptoms occur. We have discussed the symptoms which are most concerning (e.g., changing or worsening pain, trouble swallowing or breathing, neck stiffness, fever) that necessitate immediate return. - Vital Signs Vital signs: Temp Pulse Resp BP Pulse Ox 98.1 F 89 18 127/73 H 96 12/17/18 19:26 12/17/18 19:26 12/17/18 19:26 12/17/18 19:26 12/17/18 19:26 Discharge - Discharge Clinical Impression: Viral sore throat URI (upper respiratory infection) Qualifiers: URI type: unspecified viral URI Qualified Code(s): J06.9 - Acute upper respiratory infection, unspecified Condition: Stable Disposition: HOME, SELF-CARE Instructions: Family Physicians / Practices Additional Instructions: UPPER RESPIRATORY ILLNESS: You have a viral infection of the respiratory passages -- a "cold." This common infection causes nasal congestion, drainage, and often sore throat and cough. It is highly contagious. The disease usually lasts about 10 to 14 days. There is no "cure" for the viral infection -- it must run its course. If there is a complication, such as bacterial infection in the nose, sinuses, middle ear, or bronchial tubes, antibiotics may be required. The antibiotics won't affect the virus. Drink plenty of fluids. A humidifier may help. An expectorant medication or decongestant may make you more comfortable. Use acetaminophen or ibuprofen for fever or aches. See the doctor if fever persists over two days, if there is any significant worsening of your symptoms, or if you simply fail to improve as expected. DECONGESTANT MEDICATION: A decongestant medicine has been prescribed. Often this medicine is combined in the same tablet with an antihistamine or expectorant. This type of medicine is helpful in treating a bad cold or sinus condition, as well as in treatment of the nasal congestion of hay fever. It is not of much benefit for lung infections. Decongestant medicines are related to stimulants. They can cause an increase in blood pressure and heart rate. Persons with heart disease and high blood pressure should not take decongestants without discussing this with the physician. If you develop palpitations, chest pain, headache, or tremors, stop the medicine and consult your physician. COUGH-SUPPRESSANT & EXPECTORANT MEDICATION: You are to use a cough medication as needed for relief of symptoms. This medicine is a combination of an expectorant (to make the mucous thinner and more easily "coughed up") and a cough suppressant (to reduce the frequency of coughing). The cough-suppressant medicine is related to narcotics. You may experience mild nausea and sleepiness. Some patients who are very sensitive to narcotics may have stomach pain from this medicine. Taking the medicine with food reduces these side effects. Do not drive or work with machinery until you know how this medicine affects you. The expectorant should have no side effects. Iodine-containing expectorants (such as organidin) should not be taken by persons with active thyroid disease unless approved by your doctor. Call the doctor if you develop shortness of breath, hives, rash, itching, lightheadedness, or severe nausea and vomiting. USE OF ACETAMINOPHEN (Tylenol): Acetaminophen may be taken for pain relief or fever control. It's much safer than aspirin, offering a wider range of "safe" dosages. It is safe during . Some brand names are Tylenol, Panadol, Datril, Anacin 3, Tempra, and Liquiprin. Acetaminophen can be repeated every four hours. The following are maximum recommended dosages: >89 pounds or adults 650 mg to 900 mg Acetaminophen can be repeated every four hours. Maximum dose not to exceed 4000 mg a day. SMOKING: If you smoke, you should stop smoking. The tar and chemicals in cigarette smoke are harmful. Smoking has been shown to cause: emphysema chronic bronchitis lung cancer mouth and throat cancer stomach and pancreas cancer premature aging defects In addition, smoking increases ear and lung infections in children of smokers. You were treated with Claritin 10 mg, Sudafed 30 mg, Mucinex 600 mg, and ibuprofen 800 mg in the emergency room for your cough cold congestion. Your strep test was negative. You can use Flonase which is also [id number], Chloraseptic spray which is [id number], and salt and soda solution for your symptoms. Salt and soda solution 1 quart of water 1 tablespoon of salt 1 teaspoon of baking soda Mixed 3 ingredients together and boil for 1 minute Placed in a covered quart jar Use 1/2 ounce of cold solution to gargle 3 times a day FOLLOW-UP CARE: If you have been referred to a physician for follow-up care, call the physicians office for an appointment as you were instructed or within the next two days. If you experience worsening or a significant change in your symptoms, notify the physician immediately or return to the Emergency Department at any time for re-evaluation. Forms: Elevated Blood Pressure, Smoking Cessation Education, Return to Work
[2018-12-17] MEDS ORDERED: PSEUDOEPHEDRINE HCL 30 MG TABLET PO ONE (21:30)
[2018-12-17] MEDS ORDERED: LORATADINE 10 MG TABLET PO ONE (21:30)
[2018-12-17] MEDS ORDERED: GUAIFENESIN 600 MG TABLET.SA PO ONE (21:30)
[2018-12-17] MEDS ORDERED: IBUPROFEN 800 MG TABLET PO ONE (21:31)
[2018-12-17 21:49] VITALS: BP 117/72
== END 2018-12-17 21:55 | disposition home or self-care (01) ==
LOC: ER 19:22
DX: J02.8 Acute pharyngitis due to other specified organisms (principal); B97.89 Other viral agents as the cause of diseases classified elsewhere; R05 Cough; R09.89 Other specified symptoms and signs involving the circulatory and respiratory systems; R68.83 Chills (without fever); J34.89 Other specified disorders of nose and nasal sinuses; R09.81 Nasal congestion; R09.82 Postnasal drip; F17.210 Nicotine dependence, cigarettes, uncomplicated; Z71.6 Tobacco abuse counseling; Z88.4 Allergy status to anesthetic agent; Z88.8 Allergy status to other drugs, medicaments and biological substances
CPT/HCPCS: 87070; 87880; 99283; 99406

== ENCOUNTER 2019-07-06 22:31 | Emergency (ER) | payer BC ==
[2019-07-07 00:40] LABS: ABSOLUTE BASOPHILS # (AUTO) 0.1 10^3/uL (0.0-0.2); ABSOLUTE EOSINOPHILS # (AUTO) 0.4 10^3/uL (0.0-0.6); ABSOLUTE LYMPHOCYTES (AUTO) 3.2 10^3/uL (0.5-4.7); ABSOLUTE MONOCYTES (AUTO) 0.8 10^3/uL (0.1-1.4); ABSOLUTE NEUT (AUTO) 8.6 10^3/uL (1.7-8.2); BASOPHILS % (AUTO) 0.5 % (0-2); HEMATOCRIT 42.5 % (36.0-47.0); HEMOGLOBIN 14.6 g/dL (12.0-15.5); LYMPHOCYTES % (AUTO) 24.2 % (13-45); MEAN CORPUSCULAR HEMOGLOBIN 31.6 pg (27.0-33.4); MEAN CORPUSCULAR HGB CONC 34.2 g/dL (32.0-36.0); MEAN CORPUSCULAR VOLUME 92 fl (80-97); MONOCYTES % (AUTO) 6.3 % (3-13); PLATELET COUNT 304 10^3/uL (150-450); RED CELL DISTRIBUTION WIDTH 12.9 % (11.5-14.0); TOTAL CELLS COUNTED % (AUTO) 100 %
[2019-07-07 00:49] LABS: APPEARANCE,URINE CLEAR; BILIRUBIN,URINE NEGATIVE (NEGATIVE); COLOR,URINE YELLOW; GLUCOSE, URINE NEGATIVE (NEGATIVE); KETONES,URINE NEGATIVE (NEGATIVE); LEUKOCYTE ESTERASE,URINE NEGATIVE (NEGATIVE); NITRITE,URINE NEGATIVE (NEGATIVE); PROTEIN,URINE NEGATIVE (NEGATIVE); URINE SPECIFIC GRAVITY 1.016
[2019-07-07 01:11] LABS: ALBUMIN 4.3 g/dL (3.5-5.0); ALKALINE PHOSPHATASE 96 U/L (38-126); ANION GAP 9 (5-19); ASPARTATE AMINO TRANSFERASE 25 U/L (14-36); BILIRUBIN,DIRECT 0.1 mg/dL (0.0-0.4); BILIRUBIN,TOTAL 0.5 mg/dL (0.2-1.3); BLOOD UREA NITROGEN 10 mg/dL (7-20); CALCIUM 9.4 mg/dL (8.4-10.2); CARBON DIOXIDE 22 mmol/L (22-30); CHLORIDE 107 mmol/L (98-107); GLUCOSE 96 mg/dL (75-110); POTASSIUM 4.5 mmol/L (3.6-5.0); TOTAL PROTEIN 7.2 g/dL (6.3-8.2)
[2019-07-07] MEDS ORDERED: DICYCLOMINE HCL 20 MG TABLET PO ONE (01:38)
[2019-07-07] MEDS ORDERED: ONDANSETRON HCL INJ/PF 4 MG/2 ML SDV IV ONE (01:38)
[2019-07-07] MEDS ORDERED: NORMAL SALINE 1000 ML 1,000 ML IV ONE (01:38)
[2019-07-07] MEDS ORDERED: MORPHINE SULFATE 10 MG/ML INJ IV ONE (01:40)
--- NOTE | 2019-07-07 01:41 | ER Document Report ---
ED General - General Chief Complaint: Abdominal Cramping Stated Complaint: ABDOMINAL PAIN Time Seen by Provider: 07/07/19 00:58 Notes: Patient is a 34-year-old female who presents emergency department with a chief complaint of abdominal pain. She states that the pain is mainly in her mid upper abdominal area. She states that it radiates all over her abdomen. She states that it feels like she is having contractions. She tried eating, but the pain did not go away. She has history of cholecystectomy in the past. Patient admits to some nausea, but denies any vomiting. She denies any diarrhea constipation. She states that her last menstrual cycle was normal and a few weeks ago. She states her menstrual cycles are regular. Her last bowel movement was yesterday. Denies dysuria, body area, or flank pain. TRAVEL OUTSIDE OF THE [place] IN LAST 30 DAYS: No - Related Data Allergies/Adverse Reactions: benzocaine [From Anbesol] Allergy (Severe, Verified 09/08/17 01:16) Facial swelling phenol [From Anbesol] Allergy (Severe, Verified 09/08/17 01:16) Facial swelling povidone-iodine [From Anbesol] Allergy (Severe, Verified 09/08/17 01:16) Facial swelling zolpidem tartrate [From Ambien] Allergy (Verified 09/08/17 01:16) Past Medical History - General Information source: Patient - Social History Smoking Status: Never Smoker Frequency of alcohol use: None Drug Abuse: None Family History: Reviewed & Not Pertinent, Arthritis, CAD, CVA, DM, Hyperlipidemia, Hypertension, Malignancy Patient has suicidal ideation: No Patient has homicidal ideation: No Pulmonary Medical History: Reports: Hx Bronchitis Denies: Hx Tuberculosis Neurological Medical History: Denies: Hx Migraine, Hx Seizures Endocrine Medical History: Denies: Hx Diabetes Mellitus Type 1, Hx Diabetes Mellitus Type 2 Renal/ Medical History: Reports: Hx Ovarian Cysts, Hx Pelvic Inflammatory Disease. Denies: Hx Peritoneal Dialysis GI Medical History: Reports: Hx Gastroesophageal Reflux Disease, Hx Irritable Bowel Psychiatric Medical History: Reports: Hx Bipolar Disorder, Hx Depression, Hx Post Traumatic Stress Disorder Past Surgical History: Reports: Hx Section - x's 3, Hx Cholecystectomy, Hx Tonsillectomy. Denies: Hx Hysterectomy, Hx Pacemaker - Immunizations Immunizations up to date: No Hx Diphtheria, Pertussis, Tetanus Vaccination: No - 2004 Hx Pneumococcal Vaccination: 10/24/00 Review of Systems - Review of Systems Notes: REVIEW OF SYSTEMS: CONSTITUTIONAL : Denies recent illness. Denies recent unintentional weight loss. Denies fever, chills, or sweats. EENT: Denies eye, ear, throat, or mouth pain, discharge, or symptoms. Denies nasal or sinus congestion. CARDIOVASCULAR: Denies chest pain. RESPIRATORY: Denies shortness of breath, cough, congestion, difficulty breathing, or wheezing. GASTROINTESTINAL: See HPI. GENITOURINARY: Denies difficulty urinating, burning, blood in urine, urgency or frequency. MUSCULOSKELETAL: Denies neck and back pain. Denies joint pain or swelling. SKIN: Denies rash, itchiness, or lesions HEMATOLOGIC : Denies easy bruising or bleeding. LYMPHATIC: Denies swollen, painful, enlarged glands. NEUROLOGICAL: Denies no numbness or tingling denies weakness. Denies headache. Denies altered mental status. Denies alteration in speech. PSYCHIATRIC: Denies stress, anxiety, alteration in sleep patterns, or depression. All other systems reviewed and negative. Physical Exam - Vital signs Vitals: Temp Pulse Resp BP Pulse Ox 99.1 F 101 H 20 118/77 95 07/06/19 22:40 07/06/19 22:40 07/06/19 22:40 07/06/19 22:40 07/06/19 22:40 - Notes Notes: PHYSICAL EXAMINATION: GENERAL: Appears well, healthy, well-nourished, no acute distress. HEAD: Normocephalic, atraumatic. EYES: PERRL, conjunctiva normal, all extraocular movements intact, sclera nonicteric ENT: Moist mucous membranes. NECK: Supple, no noticeable swelling, redness, rash. Normal range of motion. LUNGS: Equal breath sounds bilaterally and clear to auscultation. No wheezes rales or rhonchi. CARDIOVASCULAR: S1-S2, regular rate, regular rhythm. Radial pulses 2+, normal. ABDOMEN: Normoactive bowel sounds. Soft, tender mid upper abdomen, no guarding, no rebound tenderness, and no masses palpated. EXTREMITIES: Normal strength and range of motion, no pitting or edema. No cyanosis. NEUROLOGICAL: Moves all extremities upon command. Strength 5/5 in all extremities. PSYCH: Normal mood, normal affect. SKIN: Warm, dry. No rash, lesions, ulcerations noted. Normal skin turgor. Course - Re-evaluation Re-evalutation: 07/07/19 02:30 Patient has a white blood cell count of 13,000. Her hemoglobin hematocrit are stable with no anemia noted. Chemistries are unremarkable. No elevation in liver enzymes or bilirubin. Patient's urine hCG is negative and her urinalysis is negative. Lipase is negative. Due to the patient being in pain in the mid upper abdomen, I would like to rule out duct dilation and send her for a renal right upper quadrant ultrasound. Patient states that the morphine did not help with her pain. She will also be treated with Carafate and Pepcid for any possible gastritis. 07/07/19 04:30 Patient states that she feels better after receiving Carafate and Pepcid. I suspect the patient has gastritis. Very low suspicion for pancreatitis, mesenteric ischemia, bowel obstruction, or any life-threatening etiology at this time. She will be sent home with Carafate and Pepcid. She will follow-up with GI and a primary care provider. Follow-up precautions were given. Verbal discharge instructions were given to the patient. They verbalized understand ing. They are stable for discharge. - Vital Signs Vital signs: Temp Pulse Resp BP Pulse Ox 98.2 F 101 H 18 117/54 L 96 07/07/19 04:01 07/06/19 22:40 07/07/19 04:01 07/07/19 04:01 07/07/19 04:01 - Laboratory Result Diagrams: 07/07/19 00:30 07/07/19 00:30 Laboratory results interpreted by me: 07/07/19 07/07/19 00:20 00:30 WBC 13.0 H Absolute Neuts (auto) 8.6 H Urine Urobilinogen 2.0 H Discharge - Discharge Clinical Impression: Abdominal pain Qualifiers: Abdominal location: upper abdomen, unspecified Qualified Code(s): R10.10 - Upper abdominal pain, unspecified Condition: Stable Disposition: HOME, SELF-CARE Additional Instructions: Your symptoms appear to be most consistent with stomach or upper intestinal irritation. Please begin taking famotidine 20 mg in the morning and 20 mg at night. You are also being started on Carafate. Take Carafate before every meal and at night. You may also take medicine such as Pepto-Bismol or Tums to assist with your pain. Please return to emergency department immediately if you have worsening of your pain, shortness of breath, vomiting, become unable to exert yourself due to pain or difficulty breathing, you pass out, or have any pain that radiates into your arms, jaw, or back. Please also return if you have any additional symptoms that are concerning to you. As we have discussed, the most important thing is lifestyle changes. You need to avoid smoking, sodas, tea, coffee, alcohol, spicy foods, and acidic foods such as citrus fruits, tomato based products, berries, and most fruit juices. Prescriptions: Sucralfate [Carafate 1 gm Tablet] 1 gm PO ACHS #120 tablet Famotidine [Pepcid 20 mg Tablet] 20 mg PO BID #60 tablet
[2019-07-07] MEDS ORDERED: FAMOTIDINE 20 MG TABLET PO ONE (02:30)
[2019-07-07] MEDS ORDERED: SUCRALFATE 1 GM TABLET PO ONE (02:31)
--- NOTE | 2019-07-07 03:52 | RADIOLOGY REPORT (SQ) ---
Ultrasound right upper quadrant on 07/07/2019 at 3:00 AM CLINICAL INDICATION: Generalized abdominal pain, right upper quadrant pain COMPARISON: CT from 11/05/2013 FINDINGS: Multiple sonographic images are obtained throughout the right upper quadrant, both transverse and sagittal images are obtained. Limited visualized pancreas is unremarkable. Visualized aorta is unremarkable with no aneurysm. Visualized liver is homogeneous without focal lesion or evidence of intrahepatic biliary ductal dilatation. The patient is status post cholecystectomy. Visualized portal vein is patent with a normal directional flow. The common duct measures 1 cm which is within normal limits postcholecystectomy mitigating against obstruction of the biliary tree. Right kidney shows no hydronephrosis. No free fluid is noted in the right upper quadrant. IMPRESSION: Unremarkable exam.
[2019-07-07 04:14] VITALS: BP 117/54
== END 2019-07-07 04:35 | disposition home or self-care (01) ==
LOC: ER 22:31
DX: R10.13 Epigastric pain (principal); R10.816 Epigastric abdominal tenderness; R11.0 Nausea; Z90.49 Acquired absence of other specified parts of digestive tract; Z88.4 Allergy status to anesthetic agent; Z88.8 Allergy status to other drugs, medicaments and biological substances; Z87.19 Personal history of other diseases of the digestive system
CPT/HCPCS: 36415; 83690; 85025; 81025; 80053; 81001; 76705; J2270; J2405; J7030; 96361; 96374; 96375; 99284

== ENCOUNTER 2020-01-08 14:27 | Emergency (ER) | payer BC ==
[2020-01-08] MEDS ORDERED: ASPIRIN 81 MG TABLET, CHEWABLE PO ONE (14:54)
--- NOTE | 2020-01-08 14:54 | ER Document Report ---
ED Medical Screen (RME) - General Chief Complaint: Chest Tightness Stated Complaint: CHEST TIGHTNESS Time Seen by Provider: 01/08/20 14:53 Mode of Arrival: Ambulatory Information source: Patient Notes: 34-year-old female presented to ED for complaint of cough congestion chest tightness for the last week. She states she has not had any fevers. She states she is short of breath with chest pain at this time. She does not have any history of asthma. Patient is alert oriented respirations regular nonlabored. I have greeted and performed a rapid initial assessment of this patient. A comprehensive ED assessment and evaluation of the patient, analysis of test results and completion of medical decision making process will be conducted by an additional ED providers. TRAVEL OUTSIDE OF THE [place] IN LAST 30 DAYS: No - Related Data Allergies/Adverse Reactions: benzocaine [From Anbesol] Allergy (Severe, Verified 09/08/17 01:16) Facial swelling phenol [From Anbesol] Allergy (Severe, Verified 09/08/17 01:16) Facial swelling povidone-iodine [From Anbesol] Allergy (Severe, Verified 09/08/17 01:16) Facial swelling zolpidem tartrate [From Ambien] Allergy (Verified 09/08/17 01:16) Past Medical History - Social History Chew tobacco use (# tins/day): No Frequency of alcohol use: None Drug Abuse: None Pulmonary Medical History: Reports: Hx Bronchitis Denies: Hx Tuberculosis Neurological Medical History: Denies: Hx Migraine, Hx Seizures Endocrine Medical History: Denies: Hx Diabetes Mellitus Type 1, Hx Diabetes Mellitus Type 2 Renal/ Medical History: Reports: Hx Ovarian Cysts, Hx Pelvic Inflammatory Disease. Denies: Hx Peritoneal Dialysis GI Medical History: Reports: Hx Gastroesophageal Reflux Disease, Hx Irritable Bowel Psychiatric Medical History: Reports: Hx Bipolar Disorder, Hx Depression, Hx Post Traumatic Stress Disorder Past Surgical History: Reports: Hx Section - x's 3, Hx Cholecystectomy, Hx Tonsillectomy. Denies: Hx Hysterectomy, Hx Pacemaker - Immunizations Immunizations up to date: No Hx Diphtheria, Pertussis, Tetanus Vaccination: No - 2004 Physical Exam - Vital signs Vitals: Temp Pulse Resp BP Pulse Ox 98.5 F 90 18 114/72 97 01/08/20 14:48 01/08/20 14:48 01/08/20 14:48 01/08/20 14:48 01/08/20 14:48 Course - Vital Signs Vital signs: Temp Pulse Resp BP Pulse Ox 98.5 F 90 18 114/72 97 01/08/20 14:48 01/08/20 14:48 01/08/20 14:48 01/08/20 14:48 01/08/20 14:48
--- NOTE | 2020-01-08 15:23 | RADIOLOGY REPORT (SQ) ---
EXAM DESCRIPTION: CHEST 2 VIEWS COMPLETED DATE/TIME: 01/08/2020 3:10 pm REASON FOR STUDY: Chest pain cough congestion COMPARISON: 02/18/2019. EXAM PARAMETERS: NUMBER OF VIEWS: two views TECHNIQUE: Digital Frontal and Lateral radiographic views of the chest acquired. RADIATION DOSE: NA LIMITATIONS: none FINDINGS: LUNGS AND PLEURA: No opacities, masses or pneumothorax. No pleural effusion. MEDIASTINUM AND HILAR STRUCTURES: No masses or contour abnormalities. HEART AND VASCULAR STRUCTURES: Heart normal size. No evidence for failure. BONES: No acute findings. HARDWARE: None in the chest. OTHER: No other significant finding. IMPRESSION: NO ACUTE RADIOGRAPHIC FINDING IN THE CHEST. TECHNICAL DOCUMENTATION: JOB ID: [id number] 2010 [employer]- All Rights Reserved Reading location - IP/workstation name: [email or web address]
[2020-01-08 15:24] LABS: ABSOLUTE EOSINOPHILS # (AUTO) 0.4 10^3/uL (0.0-0.6); ABSOLUTE LYMPHOCYTES (AUTO) 2.5 10^3/uL (0.5-4.7); ABSOLUTE MONOCYTES (AUTO) 0.5 10^3/uL (0.1-1.4); ABSOLUTE NEUT (AUTO) 4.9 10^3/uL (1.7-8.2); BASOPHILS % (AUTO) 0.5 % (0-2); EOSINOPHILS % (AUTO) 4.6 % (0-6); HEMOGLOBIN 14.6 g/dL (12.0-15.5); MEAN CORPUSCULAR HGB CONC 35.5 g/dL (32.0-36.0); MEAN CORPUSCULAR VOLUME 93 fl (80-97); MONOCYTES % (AUTO) 5.7 % (3-13); PLATELET COUNT 262 10^3/uL (150-450); RED BLOOD COUNT 4.41 10^6/uL (3.72-5.28); RED CELL DISTRIBUTION WIDTH 12.7 % (11.5-14.0); SEGMENTED NEUTROPHILS % (AUTO) 59.2 % (42-78); TOTAL CELLS COUNTED % (AUTO) 100 %; WHITE BLOOD COUNT 8.2 10^3/uL (4.0-10.5)
[2020-01-08 15:49] LABS: ALBUMIN 3.9 g/dL (3.5-5.0); ALKALINE PHOSPHATASE 75 U/L (38-126); ANION GAP 7 (5-19); ASPARTATE AMINO TRANSFERASE 42 U/L (14-36); BILIRUBIN,TOTAL 0.3 mg/dL (0.2-1.3); BLOOD UREA NITROGEN 7 mg/dL (7-20); CALCIUM 8.9 mg/dL (8.4-10.2); CARBON DIOXIDE 24 mmol/L (22-30); CHLORIDE 108 mmol/L (98-107); GLUCOSE 101 mg/dL (75-110); POTASSIUM 4.1 mmol/L (3.6-5.0); TOTAL PROTEIN 6.9 g/dL (6.3-8.2)
[2020-01-08] MEDS ORDERED: PREDNISONE 20 MG TABLET PO ONE (18:33)
[2020-01-08] MEDS ORDERED: IPRATROPIUM/ALBUTEROL 0.5-2.5 MG/3 ML AMPUL NEB ONE (18:33)
--- NOTE | 2020-01-08 18:50 | ER Document Report ---
ED General - General Chief Complaint: Chest Tightness Stated Complaint: CHEST TIGHTNESS Time Seen by Provider: 01/08/20 14:53 Mode of Arrival: Ambulatory Notes: 34-year-old female history of bronchitis presents to the emergency department with complaints of coughing feeling short of breath with headache for the past w [place]. She reports she felt bad coughing last Tuesday and Tuesday. [place] better and Tuesday. And then the symptoms returned on Tuesday. She reports she has been coughing all week. She reports she works at [employer]. She reports her work told her she could come back until she is not coughing anymore. She denies fever reports some nausea denies vomiting diarrhea. TRAVEL OUTSIDE OF THE [place] IN LAST 30 DAYS: No - HPI Onset: Last week Onset/Duration: Sudden Associated symptoms: Headache, Nausea Exacerbated by: Coughing Relieved by: Denies Similar symptoms previously: Yes Recently seen / treated by doctor: No - Related Data Allergies/Adverse Reactions: benzocaine [From Anbesol] Allergy (Severe, Verified 09/08/17 01:16) Facial swelling phenol [From Anbesol] Allergy (Severe, Verified 09/08/17 01:16) Facial swelling povidone-iodine [From Anbesol] Allergy (Severe, Verified 09/08/17 01:16) Facial swelling zolpidem tartrate [From Ambien] Allergy (Verified 09/08/17 01:16) Past Medical History - General Information source: Patient Last Menstrual Period: 2 weeks ago - Social History Smoking Status: Current Every Day Smoker Chew tobacco use (# tins/day): No Frequency of alcohol use: None Drug Abuse: None Occupation: [employer] Lives with: Friend Family History: Reviewed & Not Pertinent, Arthritis, CAD - mother, CVA, DM, Hyperlipidemia, Hypertension, Malignancy Patient has suicidal ideation: No Patient has homicidal ideation: No Pulmonary Medical History: Reports: Hx Bronchitis Denies: Hx Tuberculosis Neurological Medical History: Denies: Hx Migraine, Hx Seizures Endocrine Medical History: Denies: Hx Diabetes Mellitus Type 1, Hx Diabetes Mellitus Type 2 Renal/ Medical History: Reports: Hx Ovarian Cysts, Hx Pelvic Inflammatory Disease. Denies: Hx Peritoneal Dialysis GI Medical History: Reports: Hx Gastroesophageal Reflux Disease, Hx Irritable Bowel Psychiatric Medical History: Reports: Hx Bipolar Disorder, Hx Depression, Hx Post Traumatic Stress Disorder Past Surgical History: Reports: Hx Section - x's 3, Hx Cholecystectomy, Hx Tonsillectomy. Denies: Hx Hysterectomy, Hx Pacemaker - Immunizations Immunizations up to date: No Hx Diphtheria, Pertussis, Tetanus Vaccination: No - 2004 Hx Pneumococcal Vaccination: 10/24/00 Review of Systems - Review of Systems Notes: Review HPI for review of systems., All other systems negative Physical Exam - Vital signs Vitals: Temp Pulse Resp BP Pulse Ox 98.5 F 90 18 114/72 97 01/08/20 14:48 01/08/20 14:48 01/08/20 14:48 01/08/20 14:48 01/08/20 14:48 - Notes Notes: PHYSICAL EXAMINATION: GENERAL: Well-appearing and in no acute distress HEAD: Atraumatic, normocephalic. EYES: Pupils equal round extraocular movements intact, sclera anicteric, conjunctiva are normal. ENT: nares patent, oropharynx clear without exudates. Moist mucous membranes. NECK: Normal range of motion, supple without lymphadenopathy LUNGS: CTAB and equal. No wheezes rales or rhonchi. HEART: Regular rate and rhythm without murmurs ABDOMEN: Soft, no tenderness. No guarding, no rebound EXTREMITIES: Normal range of motion, no pitting edema. No cyanosis. NEUROLOGICAL: Cranial nerves grossly intact. Normal sensory/motor exams. PSYCH: Normal mood, normal affect. SKIN: Warm, Dry, normal turgor, no rashes or lesions noted Course - Re-evaluation Re-evalutation: 01/08/20 18:53 Patient presents emergency department with complaints of cough feeling short of breath for the past week. She did not receive her flu vaccine this year. She reports some nausea. Reports history of bronchitis and feels like this is the same. Denies vomiting diarrhea. Denies chest pain. Labs unremarkable. Troponin negative. Chest x-ray negative. Patient EKG does show some T wave inversion which is different from her past EKG. No ST elevation. Patient did report that she went to [place] 2 weeks ago. She reports she visited her friend she was not in public places. She has not been exposed to the covered virus as far she knows. Patient received a DuoNeb breathing treatment. Reports she feels much better after that. Is ready for discharge. Patient was instructed on all results. Instructed on her EKG with T wave inversion changes. Instructed on the importance of follow-up with a primary care provider that may refer her to a historic interpreter for stress test. She was also instructed to quit smoking. She was instructed on steroids and the inhaler. Patient had used an inhaler in the past. She verbalized understanding to all instructions. Chest X-Ray 01/08/20 14:55 IMPRESSION: NO ACUTE RADIOGRAPHIC FINDING IN THE CHEST. Laboratory 01/08/20 01/08/20 01/08/20 15:08 15:08 15:08 WBC 8.2 RBC 4.41 Hgb 14.6 Hct 41.0 MCV 93 MCH 33.0 MCHC 35.5 RDW 12.7 Plt Count 262 Lymph % (Auto) 30.0 [place] % (Auto) 5.7 Eos % (Auto) 4.6 Baso % (Auto) 0.5 Absolute Neuts (auto) 4.9 Absolute Lymphs (auto) 2.5 Absolute Monos (auto) 0.5 Absolute Eos (auto) 0.4 Absolute Basos (auto) 0.0 Seg Neutrophils % 59.2 Sodium 139.1 Potassium 4.1 Chloride 108 H Carbon Dioxide 24 Anion Gap 7 BUN 7 Creatinine 0.80 Est GFR ( Amer) > 60 Est GFR (MDRD) Non-Af > 60 Glucose 101 Calcium 8.9 Total Bilirubin 0.3 Direct Bilirubin 0.0 Neonat Total Bilirubin Not Reportable Neonat Direct Bilirubin Not Reportable Neonat Indirect Bili Not Reportable AST 42 H ALT 44 H Alkaline Phosphatase 75 Troponin I < 0.012 Total Protein 6.9 Albumin 3.9 01/08/20 19:18 - Vital Signs Vital signs: Temp Pulse Resp BP Pulse Ox 98.1 F 80 18 122/68 97 01/08/20 19:16 01/08/20 19:16 01/08/20 19:16 01/08/20 19:16 01/08/20 19:16 - Laboratory Result Diagrams: 01/08/20 15:08 01/08/20 15:08 Laboratory results interpreted by me: 01/08/20 15:08 Chloride 108 H AST 42 H ALT 44 H - Diagnostic Test Radiology reviewed: Image reviewed, Reports reviewed - EKG Interpretation by Me EKG shows normal: Sinus rhythm Rate: Normal Rhythm: NSR Additional EKG results interpreted by me: 01/08/20 19:[address] elevation some T wave inversion in diffuse leads Q TC 432. Discussed EKG with Dr. Russell. He advises patient follow-up with the primary care provider for cardiology referral for stress test. Patient is not having chest pain negative troponin. Patient was instructed on all results to include EKG changes. She verbalized understanding. Discharge - Discharge Clinical Impression: Cough, Headache, Bronchitis Condition: Stable Disposition: HOME, SELF-CARE Instructions: Bronchitis ([facility]), Bronchodilators ([facility]), Headache ([facility]), Use of Uvmz-Ema-Lotwzxc Ibuprofen ([facility]), Steroid Medication Additional Instructions: *You have been evaluated for a cough, headache, bronchitis Your labs were unremarkable. Your chest x-ray was negative for pneumonia. Your EKG did show some T wave changes. You should follow-up with a historic interpreter for evaluation and possible stress test *Take medication as prescribed *quit smoking *Increase fluids *Monitor your temperature, take Tylenol as indicated *Follow up with a primary care provider within one week for recheck and referral to historic interpreter *Return to ED for increasing fever, cough, worsening condition, changes, needs Prescriptions: Prednisone [Deltasone 10 mg Tablet] 10 mg PO ASDIR PRN #21 tablet PRN Reason: Forms: Smoking Cessation Education, Return to Work
[2020-01-08] MEDS ORDERED: ALBUTEROL SULFATE HFA (90 MCG/PUFF) 8 GM MDI IH ONE (19:04)
[2020-01-08] MEDS ORDERED: IBUPROFEN 800 MG TABLET PO ONE (19:12)
[2020-01-08 19:17] VITALS: BP 122/68
--- NOTE | 2020-01-08 21:34 | EKG REPORT ---
SEVERITY:- ABNORMAL ECG - SINUS RHYTHM NONSPECIFIC T ABNORMALITIES, DIFFUSE LEADS : Confirmed by: Manuela Welch MD 08-Jan-2020 21:34:19
--- NOTE | 2020-01-08 21:35 | EKG REPORT ---
SEVERITY:- ABNORMAL ECG - SINUS RHYTHM NONSPECIFIC T ABNORMALITIES, DIFFUSE LEADS : Confirmed by: Manuela Welch MD 08-Jan-2020 21:34:23
== END 2020-01-08 19:16 | disposition home or self-care (01) ==
LOC: ER 14:27
DX: J40 Bronchitis, not specified as acute or chronic (principal); R51 Headache; R07.9 Chest pain, unspecified; R06.02 Shortness of breath; F17.210 Nicotine dependence, cigarettes, uncomplicated; Z90.49 Acquired absence of other specified parts of digestive tract
CPT/HCPCS: 93005; 99283; 36415; 85025; 80053; 84484; 71046; 93010; J7512; J7620; J3490

== ENCOUNTER 2020-07-17 03:11 | Emergency (ER) | payer SELFPAY ==
[2020-07-17] MEDS ORDERED: IBUPROFEN 800 MG TABLET PO ONE (03:59)
[2020-07-17] MEDS ORDERED: ONDANSETRON 4 MG TAB.RAPDIS PO ONE (04:00)
--- NOTE | 2020-07-17 04:02 | ER Document Report ---
ED General - General Stated Complaint: CHEST TIGHTNESS BODY ACHES NAUSEA DIARRHEA Time Seen by Provider: 07/17/20 03:49 Notes: Patient is a 35-year-old female that comes emergency department for chief complaint of generalized sick symptoms over the past day including body aches, congestion, sore throat, cough, vague nausea. She denies vomiting, diarrhea, when asked she states that she has some intermittent discomfort in her chest, she denies productive cough or shortness of breath, she denies headache or neck stiffness. 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 Patient smokes, has a history of IBS, bipolar disorder, PTSD, cholecyst ectomy, . She states she might be . She has not been exposed or tested for COVID-19 reportedly. TRAVEL OUTSIDE OF THE [place] IN LAST 30 DAYS: No - Related Data Allergies/Adverse Reactions: benzocaine [From Anbesol] Allergy (Severe, Verified 09/08/17 01:16) Facial swelling phenol [From Anbesol] Allergy (Severe, Verified 09/08/17 01:16) Facial swelling povidone-iodine [From Anbesol] Allergy (Severe, Verified 09/08/17 01:16) Facial swelling zolpidem tartrate [From Ambien] Allergy (Verified 09/08/17 01:16) Past Medical History - General Information source: Patient - Social History Smoking Status: Current Every Day Smoker Smoking Education Provided: Yes - <3 min Frequency of alcohol use: None Drug Abuse: None Lives with: Family Family History: Reviewed & Not Pertinent, Arthritis, CAD - mother, CVA, DM, Hyperlipidemia, Hypertension, Malignancy Pulmonary Medical History: Reports: Hx Bronchitis Denies: Hx Tuberculosis Neurological Medical History: Denies: Hx Migraine, Hx Seizures Endocrine Medical History: Denies: Hx Diabetes Mellitus Type 1, Hx Diabetes Mellitus Type 2 Renal/ Medical History: Reports: Hx Ovarian Cysts, Hx Pelvic Inflammatory Disease. Denies: Hx Peritoneal Dialysis GI Medical History: Reports: Hx Gastroesophageal Reflux Disease, Hx Irritable Bowel Psychiatric Medical History: Reports: Hx Bipolar Disorder, Hx Depression, Hx Post Traumatic Stress Disorder Past Surgical History: Reports: Hx Section - x's 3, Hx Cholecystectomy, Hx Tonsillectomy. Denies: Hx Hysterectomy, Hx Pacemaker - Immunizations Immunizations up to date: No Hx Diphtheria, Pertussis, Tetanus Vaccination: No - 2004 Hx Pneumococcal Vaccination: 10/24/00 Review of Systems - Review of Systems Constitutional: See HPI EENT: See HPI Cardiovascular: No symptoms reported Respiratory: See HPI Gastrointestinal: No symptoms reported Genitourinary: No symptoms reported Female Genitourinary: No symptoms reported Musculoskeletal: No symptoms reported Skin: No symptoms reported Hematologic/Lymphatic: No symptoms reported Neurological/Psychological: No symptoms reported Physical Exam - Vital signs Vitals: Temp Pulse Resp BP Pulse Ox 98.4 F 83 16 120/75 97 07/17/20 03:28 07/17/20 03:28 07/17/20 03:28 07/17/20 03:07/17/20 03:28 - Notes Notes: GENERAL: Alert, interacts well. No acute distress. HEAD: Normocephalic, atraumatic. EYES: Pupils equal, round, and reactive to light. Extraocular movements intact. ENT: Oral mucosa moist, tongue midline. Mild erythema the posterior pharynx, no swelling, exudates, or evidence of peritonsillar abscess. Airway patent. Mild nasal congestion, sinuses nontender ear canals unremarkable, TM's intact. NECK: Full range of motion. Supple. Trachea midline. No lymphadenopathy. LUNGS: Clear to auscultation bilaterally, no wheezes, rales, or rhonchi. No respiratory distress. Non-tender chest wall. HEART: Regular rate and rhythm. No murmur ABDOMEN: Soft, non-tender. Non-distended. EXTREMITIES: Moves all 4 extremities spontaneously. No edema, normal radial and dorsalis pedis pulses bilaterally. No cyanosis. BACK: no cervical, thoracic, lumbar midline tenderness. No saddle anesthesia, normal distal neurovascular exam. Moves all extremities in full range of motion. NEUROLOGICAL: Alert and oriented x3. Normal speech. Cranial nerves II through XII grossly intact. Strength 5/5 in all extremities. PSYCH: Normal affect, normal mood. SKIN: Warm, dry, normal turgor. No rashes or lesions noted. Course - Re-evaluation Re-evalutation: Patient is respiratory congestion, pharyngitis, body aches, mild cough. She reports associated discomfort over the chest with cough. Lungs clear, patient talkative, vitals unremarkable, physical examination unremarkable other than very mild posterior erythema and congestion. Strep negative, chest x-ray unremarkable, urine unremarkable, negative. Discussed with patient. Based on her symptoms and evaluation I suspect this is viral. Patient is wanting COVID-19 testing which was offered, this was performed, discussed expectations, follow-up, return precautions provided with Dae here. Deion talbot states appreciation and agreement. Stable and well-appearing at time of discharge. - Vital Signs Vital signs: Temp Pulse Resp BP Pulse Ox 99.0 F 83 15 135/72 H 100 07/17/20 05:54 07/17/20 03:28 07/17/20 05:54 07/17/20 05:54 07/17/20 05:54 Discharge - Discharge Clinical Impression: Body aches, Sinus congestion, Cough Pharyngitis Qualifiers: Pharyngitis/tonsillitis etiology: unspecified etiology Qualified Code(s): J02.9 - Acute pharyngitis, unspecified Condition: Stable Disposition: HOME, SELF-CARE Additional Instructions: Your urine is unremarkable, your is negative, your chest x-ray does not show any concerning findings, your strep is negative. Overall I suspect this is a viral illness, this should resolve with time. You have been tested for COVID-19, please quarantine while you are awaiting your results. Stay hydrated, take [id number] medication along with the medication you were given today, and rest. Follow-up with primary care. Return if you worsen including difficulty breathing, spiking fevers, difficulty swallowing, or any other concerning or worsening symptoms. As a person under investigation for COVID-19, the [place] Department of Health and Human Services (division on public health) advises you to adhere to the following guidance until your test results are reported to you. If your test result is positive, you will receive additional information from your provider and your local health department at that time. Remain at home until you are cleared by the health provider or public health authorities. Keep a log of visitors to your home, notify any visitors to your home of your isolation status. If you plan to move to a new address or leave the [facility], notify the local health department in your County. Call your Doctor or seek care if you have an urgent medical need. Before seeking medical care, call him to get instructions from the provider before arriving at the medical office, clinic, or hospital. Notify them that you are being tested for the virus (COVID-19) so that arrangements can be made, as necessary, to prevent transmission to others in the healthcare setting. Next, notify the local health department in your county. If a medical emergency arises and you need to call 911, inform the first responders that you are being tested for the virus that causes COVID-19. Next, notify the local health department in your county. Forms: Return to Work
[2020-07-17 04:26] LABS: APPEARANCE,URINE CLEAR; BILIRUBIN,URINE NEGATIVE (NEGATIVE); COLOR,URINE STRAW; GLUCOSE, URINE NEGATIVE (NEGATIVE); KETONES,URINE NEGATIVE (NEGATIVE); LEUKOCYTE ESTERASE,URINE NEGATIVE (NEGATIVE); NITRITE,URINE NEGATIVE (NEGATIVE); PROTEIN,URINE NEGATIVE (NEGATIVE); URINE SPECIFIC GRAVITY 1.005; UROBILINOGEN,URINE NEGATIVE mg/dL (<2.0)
--- NOTE | 2020-07-17 04:42 | RADIOLOGY REPORT (SQ) ---
COMPLETED DATE/TME: 07/17/2020 03:59 EXAM: Single view chest. INDICATION: Chest pain. COMPARISON: Chest x-ray: 01/08/2020. FINDINGS: Cardiac silhouette: Unremarkable. Jennifer: Unremarkable. Lobar consolidation: None. Pleural effusion: None. Pneumothorax: None. Other: No intraperitoneal free air. Bones: Unremarkable. Other: None. IMPRESSION: 1. No acute cardiopulmonary process.
[2020-07-17] MEDS ORDERED: DEXAMETHASONE SOD PHOS INJ 10 MG/1 ML VIAL IM ONE (05:39)
[2020-07-17 06:04] VITALS: BP 135/72
--- NOTE | 2020-07-17 21:59 | EKG REPORT ---
SEVERITY:- ABNORMAL ECG - SINUS RHYTHM NONSPECIFIC T ABNORMALITIES, INFERIOR LEADS : Confirmed by: Manuela Welch MD 17-Jul-2020 21:58:29
== END 2020-07-17 06:06 | disposition home or self-care (01) ==
LOC: ER 03:11
DX: J02.9 Acute pharyngitis, unspecified (principal); M79.10 Myalgia, unspecified site; R09.81 Nasal congestion; R05 Cough; R07.9 Chest pain, unspecified; R11.0 Nausea; R19.7 Diarrhea, unspecified; F17.200 Nicotine dependence, unspecified, uncomplicated; Z88.8 Allergy status to other drugs, medicaments and biological substances; Z20.828 Contact with and (suspected) exposure to other viral communicable diseases
CPT/HCPCS: 93005; 99285; 96372; 87070; 87880; 87635; 81025; 81001; 71045; 93010; S0119; J1100; C9803

== ENCOUNTER 2020-07-21 12:42 | Emergency (ER) | payer SELFPAY ==
--- NOTE | 2020-07-21 13:51 | ER Document Report ---
ED Medical Screen (RME) - General Chief Complaint: Shortness Of Breath Stated Complaint: COUGH,SHORT OF BREATH,CHEST TIGHT Time Seen by Provider: 07/21/20 13:41 TRAVEL OUTSIDE OF THE [place] IN LAST 30 DAYS: No - HPI Notes: 07/21/20 13:50 35-year-old female to the emergency department with complaints of persistent cough, chest pain and now shortness of breath for the past 5 days. She was seen about 4 days ago and he did have a COVID swab which ended up being negative. However she continues to feel poorly. She admits to little bit of a scratchy throat and ear pain as well as a headache. 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 She also states this feels little bit like when she had mono last. She had mono last year. The cough is not productive. Denies any back pain or urinary complaints. Denies any nausea, vomiting, diarrhea, belly pain. I performed a brief medical screening exam on the patient determined that the patient needs further evaluation and management by main side provider. I have placed initial orders to help expedite care. The patient was evaluated during the global COVID 19 pandemic, and that diagnosis was suspected/considered upon their initial presentation. Their evaluation, treatment, and testing was consistent with current guidelines for patients who present with complaints or symptoms that may be related to COVID-19. - Related Data Allergies/Adverse Reactions: benzocaine [From Anbesol] Allergy (Severe, Verified 09/08/17 01:16) Facial swelling phenol [From Anbesol] Allergy (Severe, Verified 09/08/17 01:16) Facial swelling povidone-iodine [From Anbesol] Allergy (Severe, Verified 09/08/17 01:16) Facial swelling zolpidem tartrate [From Ambien] Allergy (Verified 09/08/17 01:16) Past Medical History Pulmonary Medical History: Reports: Hx Bronchitis Denies: Hx Tuberculosis Neurological Medical History: Denies: Hx Migraine, Hx Seizures Endocrine Medical History: Denies: Hx Diabetes Mellitus Type 1, Hx Diabetes Mellitus Type 2 Renal/ Medical History: Reports: Hx Ovarian Cysts, Hx Pelvic Inflammatory Disease. Denies: Hx Peritoneal Dialysis GI Medical History: Reports: Hx Gastroesophageal Reflux Disease, Hx Irritable Bowel Psychiatric Medical History: Reports: Hx Bipolar Disorder, Hx Depression, Hx Post Traumatic Stress Disorder Past Surgical History: Reports: Hx Section - x's 3, Hx Cholecystectomy, Hx Tonsillectomy. Denies: Hx Hysterectomy, Hx Pacemaker - Immunizations Immunizations up to date: No Hx Diphtheria, Pertussis, Tetanus Vaccination: No - 2004
[2020-07-21 14:52] LABS: ABSOLUTE BASOPHILS # (AUTO) 0.1 10^3/uL (0.0-0.2); ABSOLUTE EOSINOPHILS # (AUTO) 0.3 10^3/uL (0.0-0.6); ABSOLUTE LYMPHOCYTES (AUTO) 3.7 10^3/uL (0.5-4.7); ABSOLUTE MONOCYTES (AUTO) 0.8 10^3/uL (0.1-1.4); ABSOLUTE NEUT (AUTO) 10.1 10^3/uL (1.7-8.2); BASOPHILS % (AUTO) 0.5 % (0-2); EOSINOPHILS % (AUTO) 1.9 % (0-6); HEMATOCRIT 42.2 % (36.0-47.0); HEMOGLOBIN 14.7 g/dL (12.0-15.5); LYMPHOCYTES % (AUTO) 24.6 % (13-45); MEAN CORPUSCULAR HEMOGLOBIN 32.6 pg (27.0-33.4); MEAN CORPUSCULAR HGB CONC 34.7 g/dL (32.0-36.0); MEAN CORPUSCULAR VOLUME 94 fl (80-97); MONOCYTES % (AUTO) 5.4 % (3-13); PLATELET COUNT 305 10^3/uL (150-450); RED BLOOD COUNT 4.49 10^6/uL (3.72-5.28); RED CELL DISTRIBUTION WIDTH 12.4 % (11.5-14.0); SEGMENTED NEUTROPHILS % (AUTO) 67.6 % (42-78); TOTAL CELLS COUNTED % (AUTO) 100 %
[2020-07-21 15:03] LABS: A TYPE INFLUENZA AG NEGATIVE (NEGATIVE); B INFLUENZA AG NEGATIVE (NEGATIVE)
[2020-07-21 15:13] LABS: ALBUMIN 4.2 g/dL (3.5-5.0); ALKALINE PHOSPHATASE 99 U/L (38-126); ANION GAP 8 (5-19); ASPARTATE AMINO TRANSFERASE 26 U/L (14-36); BILIRUBIN,DIRECT 0.2 mg/dL (0.0-0.4); BILIRUBIN,TOTAL 0.6 mg/dL (0.2-1.3); BLOOD UREA NITROGEN 11 mg/dL (7-20); CALCIUM 9.4 mg/dL (8.4-10.2); CARBON DIOXIDE 21 mmol/L (22-30); CHLORIDE 108 mmol/L (98-107); GLUCOSE 101 mg/dL (75-110); POTASSIUM 4.5 mmol/L (3.6-5.0)
[2020-07-21] MEDS ORDERED: IPRATROPIUM/ALBUTEROL 0.5-2.5 MG/3 ML AMPUL NEB ONE (16:28)
[2020-07-21] MEDS ORDERED: PREDNISONE 20 MG TABLET PO ONE (16:28)
--- NOTE | 2020-07-21 16:33 | ER Document Report ---
ED General - General Chief Complaint: Shortness Of Breath Stated Complaint: COUGH,SHORT OF BREATH,CHEST TIGHT Time Seen by Provider: 07/21/20 13:41 Mode of Arrival: Ambulatory Information source: Patient Notes: Patient is a 35-year-old female presenting with cough, shortness of breath, and sharp chest pain. Reports that she was here 4 days ago and "they did nothing for me." Apparently she did have lab work, chest x-ray, and a COVID screening. She reports that her COVID screening was negative. She comes in today continued feeling generally bad all over noting a discomfort in her chest as well as a nonproductive cough. No reports of fevers or shaking chills. No nausea vomiting or diarrhea. TRAVEL OUTSIDE OF THE [place] IN LAST 30 DAYS: No - Related Data Allergies/Adverse Reactions: benzocaine [From Anbesol] Allergy (Severe, Verified 09/08/17 01:16) Facial swelling phenol [From Anbesol] Allergy (Severe, Verified 09/08/17 01:16) Facial swelling povidone-iodine [From Anbesol] Allergy (Severe, Verified 09/08/17 01:16) Facial swelling zolpidem tartrate [From Ambien] Allergy (Verified 09/08/17 01:16) Past Medical History - Social History Smoking Status: Current Every Day Smoker Frequency of alcohol use: Rare Drug Abuse: None Family History: Reviewed & Not Pertinent, Arthritis, CAD - mother, CVA, DM, Hyperlipidemia, Hypertension, Malignancy Pulmonary Medical History: Reports: Hx Bronchitis Denies: Hx Tuberculosis Neurological Medical History: Denies: Hx Migraine, Hx Seizures Endocrine Medical History: Denies: Hx Diabetes Mellitus Type 1, Hx Diabetes Mellitus Type 2 Renal/ Medical History: Reports: Hx Ovarian Cysts, Hx Pelvic Inflammatory Disease. Denies: Hx Peritoneal Dialysis GI Medical History: Reports: Hx Gastroesophageal Reflux Disease, Hx Irritable Bowel Psychiatric Medical History: Reports: Hx Bipolar Disorder, Hx Depression, Hx Post Traumatic Stress Disorder Past Surgical History: Reports: Hx Section - x's 3, Hx Cholecystectomy, Hx Tonsillectomy. Denies: Hx Hysterectomy, Hx Pacemaker - Immunizations Immunizations up to date: No Hx Diphtheria, Pertussis, Tetanus Vaccination: No - 2004 Hx Pneumococcal Vaccination: 10/24/00 Review of Systems - Review of Systems Notes: Constitutional: No fevers. No chills. Positive malaise EENT: No eye redness. No eye pain. No ear pain. No sore throat. Cardiovascular: No chest pain. No palpitations. Respiratory: Positive dry cough. Positive shortness of breath. No respiratory distress. Gastrointestinal: No abdominal pain. No nausea, vomiting, or diarrhea. Genitourinary: Atraumatic. No lesions. No pain. No discharge. Musculoskeletal: Atraumatic. No swelling. No deformities. Skin: No rash or lesions. Lymphatic: No swollen lymph nodes. Neurologic: No headache. No syncope. Psychiatric: No suicidal or homicidal ideation. Physical Exam - Vital signs Vitals: Temp Pulse Resp BP Pulse Ox 98.9 F 75 20 120/73 99 07/21/20 14:06 07/21/20 14:06 07/21/20 14:06 07/21/20 14:06 07/21/20 14:06 - Notes Notes: General: Well-developed, well-nourished. In no acute distress. Non-toxic appearing. Cardiac: Well-perfused. Regular rate and rhythm. No murmurs, rubs, or gallops. Pulmonary: No respiratory distress. No cyanosis. Bilateral lung stewart diminished Abdominal: Non-distended. Non-rigid. Bowels sounds are present in all four quadrants. No guarding or rebound. HEENT: Head is atraumatic. Conjunctivae not reddened. No tearing. PERRL. EOMI. Orbits atraumatic. No periorbital swelling or erythema. Oropharynx is without erythema, swelling, or exudates. Neck: Supple. No adenopathy. No meningismus. Dermatologic: Warm with good turgor. No rash. Atraumatic. Chest: Atraumatic. No chest wall tenderness to palpation. Musculoskeletal: Moves all extremities well. No range of motion deficits. no muscular or joint tenderness. No paraspinal muscle tenderness. no midline spinal tenderness or step-off. Genitourinary: Examination deferred Neurologic: No gross neurologic deficits. Psychiatric: Normal mood. Course - Re-evaluation Re-evalutation: 07/21/20 16:32 Patient reports a couple times a year she gets a bad case of bronchitis. She is a daily cigarette smoker. I suspect this is probably an episode of bronchitis. We will give her some prednisone and some DuoNeb treatments. We will see how she responds. Unlikely to be cardiac in nature. Cardiac enzymes, EKG, and chest x-ray pending. 07/21/20 17:46 [id number] screen negative. COVID pending. Chest x-ray negative. Better after treatments. We will treat this as upper respiratory infection - Vital Signs Vital signs: Temp Pulse Resp BP Pulse Ox 98.9 F 75 20 120/73 99 07/21/20 14:06 07/21/20 14:06 07/21/20 14:06 07/21/20 14:06 07/21/20 14:06 - Laboratory Result Diagrams: 07/21/20 14:13 07/21/20 14:13 Laboratory results interpreted by me: 07/21/20 07/21/20 14:13 14:13 WBC 15.0 H Absolute Neuts (auto) 10.1 H Sodium 136.5 L Chloride 108 H Carbon Dioxide 21 L Discharge - Discharge Clinical Impression: Upper respiratory infection Qualifiers: URI type: unspecified URI Qualified Code(s): J06.9 - Acute upper respiratory infection, unspecified Condition: Good Disposition: HOME, SELF-CARE Instructions: Upper Respiratory Illness ([facility]) Additional Instructions: Please try to quit smoking as this will aggravate your current condition. Antibiotics for 5 days. Prednisone daily for 5 days. 2 puffs of the inhaler every 4 hours as needed for shortness of breath/cough. Prescriptions: Prednisone [Deltasone 20 mg Tablet] 3 tab PO DAILY 5 Days #15 tablet Albuterol Sulfate [Proair HFA Inhalation Aerosol 8.5 gm MDI] 2 puff IH Q4H PRN #1 mdi PRN Reason: Azithromycin [Zithromax 250 mg Tablet] 250 mg PO ASDIR PRN #6 tablet PRN Reason: Forms: Smoking Cessation Education, Return to Work
--- NOTE | 2020-07-21 17:33 | RADIOLOGY REPORT (SQ) ---
EXAM DESCRIPTION: CHEST SINGLE VIEW IMAGES COMPLETED DATE/TIME: 07/21/2020 4:34 pm REASON FOR STUDY: chest pain, SOB COMPARISON: 07/17/2020 EXAM PARAMETERS: NUMBER OF VIEWS: One view. TECHNIQUE: Single frontal radiographic view of the chest acquired. RADIATION DOSE: NA LIMITATIONS: None. FINDINGS: LUNGS AND PLEURA: No opacities, masses or pneumothorax. No pleural effusion. MEDIASTINUM AND HILAR STRUCTURES: No masses. Contour normal. HEART AND VASCULAR STRUCTURES: Heart normal in size. Normal vasculature. BONES: No acute findings. HARDWARE: None in the chest. OTHER: No other significant finding. IMPRESSION: NO ACUTE RADIOGRAPHIC FINDING IN THE CHEST. TECHNICAL DOCUMENTATION: JOB ID: [id number] 2010 [employer]- All Rights Reserved Reading location - IP/workstation name: [email or web address]
--- NOTE | 2020-07-21 17:47 | EKG REPORT ---
SEVERITY:- BORDERLINE ECG - SINUS RHYTHM BORDERLINE T ABNORMALITIES, ANTERIOR LEADS : Confirmed by: Ollie Diaz MD 21-Jul-2020 17:46:51
[2020-07-21 18:05] VITALS: BP 118/82
== END 2020-07-21 18:20 | disposition home or self-care (01) ==
LOC: ER 12:42
DX: J06.9 Acute upper respiratory infection, unspecified (principal); R05 Cough; R06.02 Shortness of breath; R07.89 Other chest pain; F17.210 Nicotine dependence, cigarettes, uncomplicated; Z88.4 Allergy status to anesthetic agent; Z88.8 Allergy status to other drugs, medicaments and biological substances
CPT/HCPCS: 93005; 94640; 99285; 36415; 85025; 86308; 80053; 84484; 87804; 71045; 93010; J7512

== ENCOUNTER 2020-11-16 21:32 | Emergency (ER) | payer SELFPAY ==
--- NOTE | 2020-11-16 22:48 | ER Document Report ---
HPI - HPI Time Seen by Provider: 11/16/20 22:16 Pain Level: 3 Context: Patient is a 35-year-old female presents emergency department with a chief complaint of right arm pain. Patient states that about 3 days ago she felt a "pop" to her right elbow. States that has been hurting since then. States that she took a couple dose of Aleve, but continues to have pain. She states that she has a hard time straining her arm. - ROS Systems Reviewed and Negative: Yes All other systems reviewed and negative - CONSTITUTIONAL Constitutional: DENIES: Fever, Chills - EENT EENT: DENIES: Sore Throat - CARDIOVASCULAR Cardiovascular: DENIES: Chest pain - RESPIRATORY Respiratory: DENIES: Trouble Breathing, Coughing - GASTROINTESTINAL Gastrointestinal: DENIES: Abdominal Pain, Nausea, Patient vomiting - REPRODUCTIVE Reproductive: DENIES: : - MUSCULOSKELETAL Musculoskeletal: REPORTS: Extremity pain - right upper extremity - DERM Skin Color: Normal Skin Problems: None Past Medical History - Social History Smoking Status: Current Every Day Smoker Chew tobacco use (# tins/day): No Frequency of alcohol use: Rare Drug Abuse: None Family History: Reviewed & Not Pertinent, Arthritis, CAD - mother, CVA, DM, Hyperlipidemia, Hypertension, Malignancy Pulmonary Medical History: Reports: Hx Bronchitis Denies: Hx Tuberculosis Neurological Medical History: Denies: Hx Migraine, Hx Seizures Endocrine Medical History: Denies: Hx Diabetes Mellitus Type 1, Hx Diabetes Mellitus Type 2 Renal/ Medical History: Reports: Hx Ovarian Cysts, Hx Pelvic Inflammatory Disease. Denies: Hx Peritoneal Dialysis GI Medical History: Reports: Hx Gastroesophageal Reflux Disease, Hx Irritable Bowel Psychiatric Medical History: Reports: Hx Bipolar Disorder, Hx Depression, Hx Post Traumatic Stress Disorder Past Surgical History: Reports: Hx Section - x's 3, Hx Cholecystectomy, Hx Tonsillectomy. Denies: Hx Hysterectomy, Hx Pacemaker - Immunizations Immunizations up to date: No Hx Diphtheria, Pertussis, Tetanus Vaccination: No - 2004 Hx Pneumococcal Vaccination: 10/24/00 Vertical Provider Document - CONSTITUTIONAL Agree With Documented VS: Yes Exam Limitations: No Limitations General Appearance: No Apparent Distress - INFECTION CONTROL TRAVEL OUTSIDE OF THE [place] IN LAST 30 DAYS: No - HEENT HEENT: Atraumatic, Normocephalic, PERRLA - RESPIRATORY Respiratory: No Respiratory Distress - CARDIOVASCULAR Cardiovascular: Regular Rate, Regular Rhythm Pulses: Normal: Radial - MUSCULOSKELETAL/EXTREMETIES Musculoskeletal/Extremeties: Tender - Right medial elbow. negative: FROM - Decreased at right elbow - NEURO Level of Consciousness: Awake, Alert, Appropriate Motor/Sensory: No Motor Deficit, No Sensory Deficit - DERM Integumentary: Warm, Dry, No Rash Course - Re-evaluation Re-evalutation: 11/17/20 00:05 Humerus and right elbow x-ray are unremarkable. Patient will follow up with orthopedics. She was placed in a sling. Capillary refill less than 3 seconds. Radial pulse 2+. No vascular compromise noted. Follow-up precautions were given. Verbal discharge instructions were given to the patient. They verbalized understanding. They are stable for discharge. - Vital Signs Vital signs: Temp Pulse Resp BP Pulse Ox 98.2 F 84 15 122/79 100 11/16/20 22:02 11/16/20 22:02 11/16/20 22:02 11/16/20 22:02 11/16/20 22:02 - Laboratory Results Critical Laboratory Results Reviewed: No Critical Results - Radiology Results Critical Radiology Results Reviewed: No Critical Results Discharge - Discharge Clinical Impression: Right arm pain Condition: Stable Disposition: HOME, SELF-CARE Additional Instructions: You were seen today in the emergency department for right arm and elbow pain. Your x-rays were normal. Take ibuprofen 600 mg and acetaminophen 1000 mg every 6 hours for your pain. Follow-up with your primary care provider. Get a referral for physical therapy. Forms: Return to Work Referrals: ÁLVARO DIAZ JR, DO [ACTIVE PROVISIONAL STAFF] - Follow up as needed
--- NOTE | 2020-11-16 23:05 | RADIOLOGY REPORT (SQ) ---
EXAM DESCRIPTION: XR ELBOW 3 VIEWS, XR HUMERUS COMPLETED DATE/TME: 11/16/2020 22:32 CLINICAL HISTORY: 35 years, Female, right arm pain. Right elbow pain; felt a "pop" COMPARISON: None. TECHNIQUE: 2 views of the right humerus and 2 views of the right elbow were obtained. LIMITATIONS: None. FINDINGS: Right humerus 2 views: No bone or joint abnormality is seen. Right elbow 2 views: No bone, joint, or definite soft tissue abnormality is seen. IMPRESSION: Negative study copyright 2010 [facility]- All Rights Reserved
[2020-11-17 01:06] VITALS: BP 124/75
--- OUTSIDE RECORDS SUMMARY | 2020-11-19 09:17 | XMS REPORT ---
:1985 [facility] [address] [place] [id number] Care Team Providers Name Role Phone DEEPTI ZAMORA Attending Clinician Unavailable Allergies, Adverse Reactions, Alerts This patient has no known allergies or adverse reactions. Medications Ordered Filled Start Stop Current Ordering Indication Dosage Frequency Signature Comments Components Medication Medication Date Date Medication? Clinician (SIG) Name Name Acetaminoph Yes Deepti 1 Every 4 T o en/Hydrocod 05-05 Chavo 6 Hours as one Bitart 00:00: Do needed for ([place]*) 00 Pain 5/325MG Tab Problems Condition Condition Condition Status Onset Resolution Last Treatin g Comments Name Details Category Date Date Treatment Clinician Date Toe Problem Resolved fracture, 7-13 left 04:17: 00 Procedures This patient has no known procedures. Results Test Description Test Time Test Comments Text Results Atomic Results Result Comments RADIOLOGY 2018-05-[address] 01:35:00 [facility] [address] ---- Patient: B OWDEN,BULL KWADWO : 1985 Sex: F Address: [facility] [address] [place] [id number] [address]: [id number] REQ SEQ #: [id number] Location: Room #: Ordering: DEETPI ZAMORA DO Diagnosis: LT FOOT PINKY TOE INJURY ---- FOOT LEFT 3 VIEWS History: LT FOOT PINKY TOE INJURY LT FOOT PINKY TOE INJURY Three views were obtained. The mineralization is normal. There is a fracture dista l aspect of the proximal phalanx of the fifth digit. There is intra-articular extension. Calcaneal spurs are noted. IMPRESSION: Intra-articular fracture distal aspect of the proximal fifth phalanx. Final report electronically signed by: Елена Car MD Signed by: ЕЛЕНА CAR II, MD [id number] cc: ЕЛЕНА CAR II, MD, STEPHANIE DO Encounters Start End Encounter Admission Attending Care Care Encounter Date/Time Date/Time Type Type Clinicians Facility Department ID 2018-05-05 2018-05-05 Emergency ED PETRA ZAMORA [facility] [id number] 00:09:00 04:29:00 DEEPTI 38 Immunizations Ordered Immunization Filled Immunization Date Status Commen ts Refusal Reason Name Name Vaccination Unknown Completed Payers Payer Name Policy Type Policy Number Effective Date Expiration D ate Social History This patient has no known social history. Vital Signs Vital Name Observation Time Observation Value Comments WEIGHT 2018-05-05 00:09:00 104.5000 kg HEIGHT 2018-05-05 00:09:00 162.536169 cm
== END 2020-11-17 00:55 | disposition home or self-care (01) ==
LOC: ER 21:32
DX: M79.601 Pain in right arm (principal); F17.200 Nicotine dependence, unspecified, uncomplicated
CPT/HCPCS: 99283